=== PATIENT | male | born 1980 | race American Indian/Alaskan Native ===

== ENCOUNTER 2018-08-16 19:30 | Inpatient (IN) | payer SELFPAY ==
[2018-08-16] MEDS ORDERED: ATIVAN IM PRN (20:56)
[2018-08-16] MEDS ORDERED: HALDOL IM PRN (20:56)
--- NOTE | 2018-08-16 20:58 | Emergency Department Report ---
ED General Adult HPI - General Chief complaint: Altered Mental Status Stated complaint: POSS/SEIZURE Time Seen by Provider: 08/16/18 20:49 Source: patient, EMS (ems notes not available at time of chart dictation), RN notes reviewed, old records reviewed Mode of arrival: Stretcher Limitations: Altered Mental Status - History of Present Illness Initial comments: This is a 37-year-old gentleman who was brought to the hospital with Police Department and EMS secondary to altered mental status, aggressive behavior, and reported seizure-like activity. Patient is currently on a 1013 from local Police Department, and in custody. As per Police Department, the patient has articulated complaints of suicidality. Of note, the patient had a prolonged hospitalization in 2018. During a recent admission last year, the patient was intubated, and there was a very high suspicion for toxic alcohol ingestion. The patient received dialysis and fomipazole He was suspected of having a [place] tear, was also found to have renal insufficiency. In the emergency room today, the patient is awake, he will follow some commands, but he will not answer most open-ended questions are closed and he questions. He denies physical pain. He admits to having access to guns. He will not answer questions about homicidality or suicidality. He is smiling and laughing during his exam in the emergency room. No family available currently for collateral information or additional history. As per enclosed police documentation, "violent and aggressive causing property damage and fighting with police and EMS staff." Enclosed police documentation indicates that the patient made threats to harm himself, appeared upset, was combative, and attempted to injure someone else. -: unknown Quality: other Consistency: other Improves with: other Worsens with: other Associated Symptoms: confusion - Related Data Previous Rx's Medication Instructions Recorded Last Taken Type Omeprazole Magnesium [Prilosec Otc] 20 mg PO DAILY #30 tablet. 06/02/18 Unknown Rx Allergies Allergy/AdvReac Type Severity Reaction Status Date / Time Unable to Assess Allergy Verified 05/13/18 08:37 ED Review of Systems ROS: Stated complaint: POSS/SEIZURE Other details as noted in HPI Comment: Unobtainable due to pts medical conditions ED Past Medical Hx - Past Medical History Previous Medical History?: Yes Hx Congestive Heart Failure: No Hx Diabetes: No Hx Psychiatric Treatment: Yes (bipolar, schizophrenia) Hx Asthma: No Hx COPD: No Additional medical history: Pt states he has asthma and was in a coma in 2019 but cannot recall date. - Surgical History Past Surgical History?: No - Social History Smoking Status: Unknown if ever smoked - Medications Home Medications: Home Medications Medication Instructions Recorded Confirmed Last Taken Type Omeprazole Magnesium [Prilosec Otc] 20 mg PO DAILY #30 tablet. 06/02/18 08/17/18 Unknown Rx ED Physical Exam - General Limitations: Other (patient is psychotic and appears to be disorganized) General appearance: alert, in no apparent distress - Head Head exam: Present: atraumatic, normocephalic - Eye Eye exam: Present: normal appearance, PERRL, EOMI, other (visual acuity intact to finger counting, color perception, reading at a close distance). Absent: nystagmus - ENT ENT exam: Present: normal exam, normal orophraynx, mucous membranes moist, normal external ear exam - Neck Neck exam: Present: normal inspection, full ROM. Absent: tenderness, meningismus - Respiratory Respiratory exam: Present: normal lung sounds bilaterally. Absent: respiratory distress - Cardiovascular Cardiovascular Exam: Present: normal rhythm, tachycardia, normal heart sounds. Absent: systolic murmur, diastolic murmur, rubs, gallop - GI/Abdominal GI/Abdominal exam: Present: soft. Absent: distended, tenderness, guarding, rebound, rigid, pulsatile mass - Rectal Rectal exam: Present: deferred - Extremities Exam Extremities exam: Present: normal inspection, full ROM, other (2+ pulses noted in the bilateral upper, lower extremities. Compartments soft. No long bony tenderness. The pelvis is stable.). Absent: pedal edema, joint swelling, calf tenderness - Back Exam Back exam: Present: normal inspection, full ROM. Absent: tenderness, CVA tenderness (R), paraspinal tenderness, vertebral tenderness - Neurological Exam Neurological exam: Present: alert, other (Extraocular movements intact. Tongue midline. No facial droop. Facial sensation intact to light touch in the V1, V2, V3 distribution bilaterally. 5 and 5 strength in 4 extremities.. Sensation is intact to light touch in 4 extremities.) - Psychiatric Psychiatric exam: Present: suicidal ideation - Skin Skin exam: Present: warm, dry, intact, normal color. Absent: rash ED Course Vital Signs 08/16/18 08/16/18 08/16/18 20:26 20:30 21:00 Temperature 98.9 F Pulse Rate 116 H 115 H 104 H Respiratory 22 25 H 21 Rate Blood Pressure 110/58 107/59 117/64 O2 Sat by Pulse 96 96 Oximetry 08/16/18 08/16/18 08/16/18 21:30 22:00 22:30 Temperature Pulse Rate 109 H 104 H 113 H Respiratory 14 24 25 H Rate Blood Pressure 122/72 125/59 142/92 O2 Sat by Pulse 95 99 Oximetry 08/16/18 08/16/18 08/16/18 23:22 23:30 23:42 Temperature Pulse Rate 98 H 90 91 H Respiratory 18 14 Rate Blood Pressure 121/58 121/58 144/84 O2 Sat by Pulse 99 99 Oximetry 08/17/18 08/17/18 00:00 00:30 Temperature Pulse Rate 93 H 89 Respiratory 17 Rate Blood Pressure 146/93 146/93 O2 Sat by Pulse 93 98 Oximetry - Reevaluation(s) Reevaluation #1: 08/16/18 21:18 Differential diagnosis, including not limited to: Intracranial injury, cervical spine injury, overdose, suicidality, seizure, pseudoseizure, electrolyte derangement Assessment and plan: 37-year-old gentleman with complex past medical history, now with reported suicidality, questionable seizure-like activity, and who appears to be disorganized and psychotic. The patient requires initiation of ER hold, and 1013. The patient represents a danger to himself and possibly other people. Appropriate screening laboratory studies will be obtained. We will place the patient on seizure precautions. We will obtain screening laboratory studies, EKG, x-ray of the chest, CT scan of the brain, cervical spine. We will reassess after his initial that appointment have resulted. Reevaluation #2: 08/16/18 23:54 X-ray the chest is negative for acute disease. CT scan of the brain, cervical spine negative for acute disease. Patient is found to have multiple episodes of repeat hypoglycemia. He was given D50, dextrose 5, and started on a D10 drip. Lactic acidosis has improved. He is resting comfortably, and is currently in no acute distress. Given history of seizure, persistent hypoglycemia, the patient cannot be medically cleared for psychiatric placement at this time. He will require medical authorization for glycemic control. The hospital physician, Dr. Cooley has accepted the patient to the medical service for further evaluation for reported convulsion, and persistent refractory hypoglycemia. Reevaluation #3: 08/16/18 23:55 Vital sign abnormalities, leukocytosis and lactic acidosis are reviewed and appreciated. The history and physical, I do not suspect systemic bacterial illness, but rather overdose, or adrenergic involvement secondary to psychosis or drugs. iv fluids for hypercalcemia 08/17/18 05:57 ED Medical Decision Making - Lab Data Result diagrams: 08/16/18 20:54 08/16/18 20:54 Vital Signs 08/16/18 20:26 Temperature 98.9 F Pulse Rate 116 H Respiratory 22 Rate Blood Pressure 110/58 O2 Sat by Pulse 96 Oximetry Lab Results 08/16/18 08/16/18 Range/Units 20:54 20:58 WBC 14.1 H (4.5-11.0) K/mm3 RBC 4.53 (3.65-5.03) M/mm3 Hgb 13.0 (11.8-15.2) gm/dl Hct 39.0 (35.5-45.6) % MCV 86 (84-94) fl MCH 29 (28-32) pg MCHC 33 (32-34) % RDW 14.4 (13.2-15.2) % Plt Count 344 (140-440) K/mm3 Lymph % (Auto) 6.1 L (13.4-35.0) % [place] % (Auto) 6.8 (0.0-7.3) % Eos % (Auto) 0.1 (0.0-4.3) % Baso % (Auto) 0.4 (0.0-1.8) % Lymph # 0.9 L (1.2-5.4) K/mm3 [place] # 1.0 H (0.0-0.8) K/mm3 Eos # 0.0 (0.0-0.4) K/mm3 Baso # 0.1 (0.0-0.1) K/mm3 Seg Neutrophils % 86.6 H (40.0-70.0) % Seg Neutrophils # 12.3 H (1.8-7.7) K/mm3 PT 13.9 (12.2-14.9) Sec. INR 1.01 (0.87-1.13) APTT 26.4 (24.2-36.6) Sec. Lab Results 08/16/18 08/16/18 08/16/18 Range/Units 20:54 20:54 20:54 WBC (4.5-11.0) K/mm3 RBC (3.65-5.03) M/mm3 Hgb (11.8-15.2) gm/dl Hct (35.5-45.6) % MCV (84-94) fl MCH (28-32) pg MCHC (32-34) % RDW (13.2-15.2) % Plt Count (140-440) K/mm3 Lymph % (Auto) (13.4-35.0) % [place] % (Auto) (0.0-7.3) % Eos % (Auto) (0.0-4.3) % Baso % (Auto) (0.0-1.8) % Lymph # (1.2-5.4) K/mm3 [place] # (0.0-0.8) K/mm3 Eos # (0.0-0.4) K/mm3 Baso # (0.0-0.1) K/mm3 Seg Neutrophils % (40.0-70.0) % Seg Neutrophils # (1.8-7.7) K/mm3 PT (12.2-14.9) Sec. INR (0.87-1.13) APTT (24.2-36.6) Sec. Sodium 139 (137-145) mmol/L Potassium 4.1 (3.6-5.0) mmol/L Chloride 105.4 (98-107) mmol/L Carbon Dioxide 21 L (22-30) mmol/L Anion Gap 17 mmol/L BUN 13 (9-20) mg/dL Creatinine 1.6 H (0.8-1.5) mg/dL Estimated GFR 60 ml/min BUN/Creatinine Ratio 8 % Glucose 62 L (75-100) mg/dL Lactic Acid (0.7-2.0) mmol/L Calcium 11.9 H (8.4-10.2) mg/dL Magnesium (1.7-2.3) mg/dL Total Bilirubin (0.1-1.2) mg/dL Direct Bilirubin (0-0.2) mg/dL Indirect Bilirubin mg/dL AST (5-40) units/L ALT (7-56) units/L Alkaline Phosphatase (35-129) units/L Total Creatine Kinase (55-170) units/L Total Protein (6.3-8.2) g/dL Albumin (3.9-5) g/dL Albumin/Globulin Ratio % TSH (0.270-4.200) mlU/mL Salicylates < 0.3 L (2.8-20.0) mg/dL Acetaminophen < 5.0 L (10.0-30.0) ug/mL Plasma/Serum Alcohol (0-0.07) % 08/16/18 08/16/18 08/16/18 Range/Units 20:54 20:54 20:54 WBC 14.1 H (4.5-11.0) K/mm3 RBC 4.53 (3.65-5.03) M/mm3 Hgb 13.0 (11.8-15.2) gm/dl Hct 39.0 (35.5-45.6) % MCV 86 (84-94) fl MCH 29 (28-32) pg MCHC 33 (32-34) % RDW 14.4 (13.2-15.2) % Plt Count 344 (140-440) K/mm3 Lymph % (Auto) 6.1 L (13.4-35.0) % [place] % (Auto) 6.8 (0.0-7.3) % Eos % (Auto) 0.1 (0.0-4.3) % Baso % (Auto) 0.4 (0.0-1.8) % Lymph # 0.9 L (1.2-5.4) K/mm3 [place] # 1.0 H (0.0-0.8) K/mm3 Eos # 0.0 (0.0-0.4) K/mm3 Baso # 0.1 (0.0-0.1) K/mm3 Seg Neutrophils % 86.6 H (40.0-70.0) % Seg Neutrophils # 12.3 H (1.8-7.7) K/mm3 PT (12.2-14.9) Sec. INR (0.87-1.13) APTT (24.2-36.6) Sec. Sodium (137-145) mmol/L Potassium (3.6-5.0) mmol/L Chloride (98-107) mmol/L Carbon Dioxide (22-30) mmol/L Anion Gap mmol/L BUN (9-20) mg/dL Creatinine (0.8-1.5) mg/dL Estimated GFR ml/min BUN/Creatinine Ratio % Glucose (75-100) mg/dL Lactic Acid (0.7-2.0) mmol/L Calcium (8.4-10.2) mg/dL Magnesium (1.7-2.3) mg/dL Total Bilirubin (0.1-1.2) mg/dL Direct Bilirubin (0-0.2) mg/dL Indirect Bilirubin mg/dL AST (5-40) units/L ALT (7-56) units/L Alkaline Phosphatase (35-129) units/L Total Creatine Kinase (55-170) units/L Total Protein (6.3-8.2) g/dL Albumin (3.9-5) g/dL Albumin/Globulin Ratio % TSH 0.166 L (0.270-4.200) mlU/mL Salicylates (2.8-20.0) mg/dL Acetaminophen (10.0-30.0) ug/mL Plasma/Serum Alcohol < 0.01 (0-0.07) % 08/16/18 08/16/18 08/16/18 Range/Units 20:58 20:58 20:58 WBC (4.5-11.0) K/mm3 RBC (3.65-5.03) M/mm3 Hgb (11.8-15.2) gm/dl Hct (35.5-45.6) % MCV (84-94) fl MCH (28-32) pg MCHC (32-34) % RDW (13.2-15.2) % Plt Count (140-440) K/mm3 Lymph % (Auto) (13.4-35.0) % [place] % (Auto) (0.0-7.3) % Eos % (Auto) (0.0-4.3) % Baso % (Auto) (0.0-1.8) % Lymph # (1.2-5.4) K/mm3 [place] # (0.0-0.8) K/mm3 Eos # (0.0-0.4) K/mm3 Baso # (0.0-0.1) K/mm3 Seg Neutrophils % (40.0-70.0) % Seg Neutrophils # (1.8-7.7) K/mm3 PT 13.9 (12.2-14.9) Sec. INR 1.01 (0.87-1.13) APTT 26.4 (24.2-36.6) Sec. Sodium (137-145) mmol/L Potassium (3.6-5.0) mmol/L Chloride (98-107) mmol/L Carbon Dioxide (22-30) mmol/L Anion Gap mmol/L BUN (9-20) mg/dL Creatinine (0.8-1.5) mg/dL Estimated GFR ml/min BUN/Creatinine Ratio % Glucose (75-100) mg/dL Lactic Acid 2.80 H* (0.7-2.0) mmol/L Calcium (8.4-10.2) mg/dL Magnesium 2.30 (1.7-2.3) mg/dL Total Bilirubin 0.50 (0.1-1.2) mg/dL Direct Bilirubin < 0.2 (0-0.2) mg/dL Indirect Bilirubin 0.3 mg/dL AST 17 (5-40) units/L ALT 7 (7-56) units/L Alkaline Phosphatase 71 (35-129) units/L Total Creatine Kinase 507 H (55-170) units/L Total Protein 6.9 (6.3-8.2) g/dL Albumin 4.5 (3.9-5) g/dL Albumin/Globulin Ratio 1.9 % TSH (0.270-4.200) mlU/mL Salicylates (2.8-20.0) mg/dL Acetaminophen (10.0-30.0) ug/mL Plasma/Serum Alcohol (0-0.07) % - EKG Data -: EKG Interpreted by Me EKG shows normal: sinus rhythm Rate: tachycardia - EKG Data 08/16/18 21:19 Sinus tachycardia, 112 bpm, normal axis, normal intervals, borderline high left ventricular voltage, borderline left atrial enlargement, not consistent with ST elevation myocardial infarction, appears unchanged from prior EKG from 2017. - Radiology Data Radiology results: pending, report reviewed, image reviewed interpreted by me: xr chest negative for acute disease Critical care attestation.: If time is entered above; I have spent that time in minutes in the direct care of this critically ill patient, excluding procedure time. ED Disposition Clinical Impression: Hypoglycemia, History of convulsions, Psychosis Disposition: DC OP ADMIT IP TO THIS HOSP Is pt being admited?: Yes Does the pt Need Aspirin: No Condition: Fair
[2018-08-16 21:12] LABS: Basophils # (Auto) 0.1 K/mm3 (0.0-0.1); Basophils % (Auto) 0.4 % (0.0-1.8); Eosinophils % (Auto) 0.1 % (0.0-4.3); Lymphocytes # (Auto) 0.9 K/mm3 (1.2-5.4); Lymphocytes % (Auto) 6.1 % (13.4-35.0); Mean Corpuscular HGB Conc 33 % (32-34); Mean Corpuscular Volume 86 fl (84-94); Monocytes % (Auto) 6.8 % (0.0-7.3); Platelet Count 344 K/mm3 (140-440); Red Blood Count 4.53 M/mm3 (3.65-5.03); Red Cell Distribution Width 14.4 % (13.2-15.2)
[2018-08-16 21:15] LABS: INR 1.01 (0.87-1.13)
[2018-08-16 21:16] LABS: Partial Thromboplastin Time 26.4 Sec. (24.2-36.6)
[2018-08-16 21:21] LABS: Calcium 11.9 mg/dL (8.4-10.2)
[2018-08-16 21:23] LABS: Alanine Aminotransferase 7 units/L (7-56); Albumin 4.5 g/dL (3.9-5)
[2018-08-16 21:29] LABS: Bilirubin,Direct < 0.2 mg/dL (0-0.2)
[2018-08-16] MEDS ORDERED: NACL 0.9% 1000 ML 2,000 ML IV ONE (21:37)
[2018-08-16] MEDS ORDERED: D50W (25GM) Syringe IV ONE (21:37)
[2018-08-16] MEDS ORDERED: D5/0.45NS 1,000 ML IV SCH (22:00)
[2018-08-16 23:24] LABS: Amphetamine Screen,Urine PRESUMPTIVE NEGATIVE; Cocaine Screen,Urine PRESUMPTIVE NEGATIVE; Methadone Screen,Urine PRESUMPTIVE NEGATIVE; Opiate Screen,Urine PRESUMPTIVE NEGATIVE
[2018-08-16 23:27] LABS: Bacteria,Urine 1+ /HPF (Negative); Bilirubin,Urine NEG (Negative); Blood,Urine NEG (Negative); Color,Urine Yellow (Yellow); Mucus,Urine FEW /HPF; Urobilinogen,Urine < 2.0 mg/dL (<2.0)
--- NOTE | 2018-08-16 23:27 | XRay Report ---
PROCEDURE: XR CHEST 1V AP TECHNIQUE: Chest radiograph single view. HISTORY: damir guzman COMPARISONS: 05/18/2018 . FINDINGS: Heart: Normal. Mediastinum/Vessels: Normal. Lungs/Pleural space: Normal. Bony thorax: No acute osseous abnormality. Life support devices: None. IMPRESSION: No acute cardiopulmonary abnormality. This document is electronically signed by Maurice Perez MD., August 16 2018 11:24:50 PM ET
--- NOTE | 2018-08-16 23:32 | Cat Scan Report ---
PROCEDURE: CT head without contrast. TECHNIQUE: Computerized tomography of the head was performed without contrast material. CT DOSE LENGTH PRODUCT: 920.48 mGycm HISTORY: Altered mental status. COMPARISONS: None. FINDINGS: The ventricles are normal in size. The valera matter and white matter appear normal. There are no mass lesions. There is no intracranial hemorrhage. The calvarium appears intact. The mastoid air cells and visualized paranasal sinuses are well aerated. IMPRESSION: Normal study. This document is electronically signed by Lorenzo Escalante MD., August 16 2018 11:29:58 PM ET
[2018-08-16 23:36] LABS: Benzodiazepines Screen,Urine PRESUMPTIVE POSITIVE; Cannabinoid Screen,Urine PRESUMPTIVE POSITIVE
[2018-08-16] MEDS: D50W (25GM) Syringe IV PRN ×2 (23:41→23:46)
--- NOTE | 2018-08-16 23:42 | Cat Scan Report ---
PROCEDURE: CT cervical spine without contrast. TECHNIQUE: Computerized tomography of the cervical spine was performed from the skull base to T1 wit hout contrast material. CT DOSE LENGTH PRODUCT: 565.70 mGycm HISTORY: Altered mental status. COMPARISONS: None. FINDINGS: The cervical vertebrae have normal height and alignment. There are no fractures. There is no subluxat ion. There is mild disc space narrowing at C5-6. There are small vertebral body osteophytes at this l evel. There is no definite disc protrusion, although this is much better evaluated by MRI scanning. T he spinal canal is widely patent. The facet joints appear satisfactory. The neural foramina are widel y patent. The prevertebral soft tissues have normal thickness. IMPRESSION: Mild degenerative disc disease at C5-6. This document is electronically signed by Lorenzo Escalante MD., August 16 2018 11:40:13 PM ET
[2018-08-17] MEDS: D10W 1,000 ML IV SCH ×3 (00:20→20:21)
[2018-08-17] MEDS ORDERED: SODIUM CHLORIDE FLUSH SYRINGE 10 ML IV PRN (00:36)
[2018-08-17] MEDS ORDERED: ZOFRAN IV PRN (00:36)
--- NOTE | 2018-08-17 00:42 | History and Physical Report ---
<ADELFO MCCALLUM - Last Filed: 08/17/18 01:28> History of Present Illness Date of examination: 08/16/18 Date of admission: 08/16/18 23:54 Chief complaint: Altered mental status History of present illness: Patient is a 37-year-old male with PMHx of mental illness, hypertension, depression, alcohol intoxication, prior renal insufficiency who was brought to the ER by the Police Department and EMS due to change in mental status, aggress yahaira behavior, and seizure-like activity. Patient was place on [address] by the Police Department for suicidal ideation. Review the patient records showed that patient has an history of mental illness, he was hospitalized and intubated a year ago for alcohol intoxication. By the time of admission patient was awake and alert somewhat anxious, he was able to answer to questions, he states that he was hearing voices telling him to take care of his children, he denied suicidal or homicidal ideation, He admits to marijuana use, he reports abstinence from alcohol since last year. Patient states that he does not remember what happened prior to coming to the hospital, he recalls he was very mad, when informed about staying at the hospital for hypoglycemia, he gets very anxious and refused, he states that he has things to do and he has his 3 children to take care of. Patient's CT scan of the brain was normal, his WBC was 14.1, his creatinine 1.6, and a calcium level of 11.9 his blood glucose was 57 with [id number] infusing at 125/hr. Past History Past Medical History: hypertension, other (mental illness, alcohol intoxication) Past Surgical History: No surgical history Social history: no significant social history, smoking (Marijuna) Family history: no significant family history Medications and Allergies Allergies Allergy/AdvReac Type Severity Reaction Status Date / Time Unable to Assess Allergy Verified 05/13/18 08:37 Home Medications Medication Instructions Recorded Confirmed Last Taken Type Omeprazole Magnesium [Prilosec Otc] 20 mg PO DAILY #30 tablet. 06/02/18 08/17/18 Unknown Rx Active Meds: Active Medications Dextrose (D50w (25gm) Syringe) 50 ml IV PRN PRN PRN Reason: Hypoglycemia Last Admin: 08/16/18 23:46 Dose: 50 ml Documented by: Haloperidol Lactate (Haldol) 5 mg IM Q6HR PRN PRN Reason: Agitation Dextrose/Sodium Chloride (D5/0.45ns) 1,000 mls @ 0 mls/hr IV DIRECT MELBA Last Admin: 08/16/18 23:46 Dose: 999 mls/hr Documented by: Dextrose (D10w) 1,000 mls @ 125 mls/hr IV DIRECT MELBA Last Admin: 08/17/18 00:20 Dose: 125 mls/hr Documented by: Lorazepam (Ativan) 2 mg IM Q4HR PRN PRN Reason: Agitation Review of Systems Psychiatric: anxiety, depression Exam - Constitutional Vitals: Temp Pulse Resp BP Pulse Ox 98.9 F 90 18 121/58 99 08/16/18 20:26 08/16/18 23:30 08/16/18 23:30 08/16/18 23:30 08/16/18 23:30 General appearance: Present: no acute distress - EENT Eyes: Present: EOM intact ENT: hearing intact, dentition normal - Neck Neck: Present: supple - Respiratory Respiratory effort: normal Respiratory: bilateral: CTA - Cardiovascular Rhythm: regular Heart Sounds: Present: S1 & S2 - Extremities Extremities: no ischemia Peripheral Pulses: within normal limits - Abdominal General gastrointestinal: Present: deferred Male genitourinary: Present: deferred - Rectal Rectal Exam: deferred - Integumentary Integumentary: Present: clear, warm, dry - Musculoskeletal Musculoskeletal: strength equal bilaterally - Psychiatric Psychiatric: appropriate mood/affect - Neurologic Neurologic: moves all extremities Results - Labs CBC & Chem 7: 08/16/18 20:54 08/16/18 20:54 Labs: Laboratory Last Values WBC 14.1 K/mm3 (4.5-11.0) H 08/16/18 20:54 RBC 4.53 M/mm3 (3.65-5.03) 08/16/18 20:54 Hgb 13.0 gm/dl (11.8-15.2) 08/16/18 20:54 Hct 39.0 % (35.5-45.6) 08/16/18 20:54 MCV 86 fl (84-94) 08/16/18 20:54 MCH 29 pg (28-32) 08/16/18 20:54 MCHC 33 % (32-34) 08/16/18 20:54 RDW 14.4 % (13.2-15.2) 08/16/18 20:54 Plt Count 344 K/mm3 (140-440) 08/16/18 20:54 Lymph % (Auto) 6.1 % (13.4-35.0) L 08/16/18 20:54 [place] % (Auto) 6.8 % (0.0-7.3) 08/16/18 20:54 Eos % (Auto) 0.1 % (0.0-4.3) 08/16/18 20:54 Baso % (Auto) 0.4 % (0.0-1.8) 08/16/18 20:54 Lymph # 0.9 K/mm3 (1.2-5.4) L 08/16/18 20:54 [place] # 1.0 K/mm3 (0.0-0.8) H 08/16/18 20:54 Eos # 0.0 K/mm3 (0.0-0.4) 08/16/18 20:54 Baso # 0.1 K/mm3 (0.0-0.1) 08/16/18 20:54 Seg Neutrophils % 86.6 % (40.0-70.0) H 08/16/18 20:54 Seg Neutrophils # 12.3 K/mm3 (1.8-7.7) H 08/16/18 20:54 PT 13.9 Sec. (12.2-14.9) 08/16/18 20:58 INR 1.01 (0.87-1.13) 08/16/18 20:58 APTT 26.4 Sec. (24.2-36.6) 08/16/18 20:58 Sodium 139 mmol/L (137-145) 08/16/18 20:54 Potassium 4.1 mmol/L (3.6-5.0) 08/16/18 20:54 Chloride 105.4 mmol/L (98-107) 08/16/18 20:54 Carbon Dioxide 21 mmol/L (22-30) L 08/16/18 20:54 Anion Gap 17 mmol/L 08/16/18 20:54 BUN 13 mg/dL (9-20) 08/16/18 20:54 Creatinine 1.6 mg/dL (0.8-1.5) H 08/16/18 20:54 Estimated GFR 60 ml/min 08/16/18 20:54 BUN/Creatinine Ratio 8 % 08/16/18 20:54 Glucose 62 mg/dL (75-100) L 08/16/18 20:54 POC Glucose 119 (70-105) H 08/17/18 00:27 Lactic Acid 1.40 mmol/L (0.7-2.0) 08/16/18 21:49 Calcium 11.9 mg/dL (8.4-10.2) H 08/16/18 20:54 Magnesium 2.30 mg/dL (1.7-2.3) 08/16/18 20:58 Total Bilirubin 0.50 mg/dL (0.1-1.2) 08/16/18 20:58 Direct Bilirubin < 0.2 mg/dL (0-0.2) 08/16/18 20:58 Indirect Bilirubin 0.3 mg/dL 08/16/18 20:58 AST 17 units/L (5-40) 08/16/18 20:58 ALT 7 units/L (7-56) 08/16/18 20:58 Alkaline Phosphatase 71 units/L (35-129) 08/16/18 20:58 Total Creatine Kinase 507 units/L (55-170) H 08/16/18 20:58 Total Protein 6.9 g/dL (6.3-8.2) 08/16/18 20:58 Albumin 4.5 g/dL (3.9-5) 08/16/18 20:58 Albumin/Globulin Ratio 1.9 % 08/16/18 20:58 TSH 0.166 mlU/mL (0.270-4.200) L 08/16/18 20:54 Free T4 1.18 ng/dL (0.76-1.46) 08/16/18 20:54 Urine Color Yellow (Yellow) 08/16/18 23:01 Urine Turbidity Slightly-cloudy (Clear) 08/16/18 23:01 Urine pH 5.0 (5.0-7.0) 08/16/18 23:01 Ur Specific [place] 1.014 (1.003-1.030) 08/16/18 23:01 Urine Protein 100 mg/dl mg/dL (Negative) 08/16/18 23:01 Urine Glucose (UA) 50 mg/dL (Negative) 08/16/18 23:01 Urine Ketones Tr mg/dL (Negative) 08/16/18 23:01 Urine Blood Neg (Negative) 08/16/18 23:01 Urine Nitrite Neg (Negative) 08/16/18 23:01 Urine Bilirubin Neg (Negative) 08/16/18 23:01 Urine Urobilinogen < 2.0 mg/dL (<2.0) 08/16/18 23:01 Ur Leukocyte Esterase Neg (Negative) 08/16/18 23:01 Urine WBC (Auto) 2.0 /HPF (0.0-6.0) 08/16/18 23:01 Urine RBC (Auto) 1.0 /HPF (0.0-6.0) 08/16/18 23:01 Urine Bacteria (Auto) 1+ /HPF (Negative) 08/16/18 23:01 Urine Mucus Few /HPF 08/16/18 23:01 Salicylates < 0.3 mg/dL (2.8-20.0) L 08/16/18 20:54 Urine Opiates Screen Presumptive negative 08/16/18 23:01 Urine Methadone Screen Presumptive negative 08/16/18 23:01 Acetaminophen < 5.0 ug/mL (10.0-30.0) L 08/16/18 20:54 Ur Barbiturates Screen Presumptive negative 08/16/18 23:01 Ur Phencyclidine Scrn Presumptive negative 08/16/18 23:01 Ur Amphetamines Screen Presumptive negative 08/16/18 23:01 U Benzodiazepines Scrn Presumptive positive 08/16/18 23:01 Urine Cocaine Screen Presumptive negative 08/16/18 23:01 U Marijuana (THC) Screen Presumptive positive 08/16/18 23:01 Drugs of Abuse Note Disclamer 08/16/18 23:01 Plasma/Serum Alcohol < 0.01 % (0-0.07) 08/16/18 20:54 Assessment and Plan Assessment and plan: 1. New onset Hypoglycemia 2. Acute psychosis behavior (likely due to hypoglycemia or other etiology) 4. Leukocytosis (likely due to demargination) 6. Hyperglycemia (etiology unclear) 7. Renal insufficiency 8. History of EtOH abuse/intoxication 9. History of depression/anxiety 10. Acute psychosis/suicidal ideation 1013 11. Hypertension Plan: Patient is admitted for hypoglycemia Started on D10 at 125 per hour Accu-Chek every 2 hours 2 hours Then every 4 hours thereafter Cardiac diet Monitor blood pressure q4hrs Hydralazine 10 mg IV Q4hrs PRN for SBP>160 1 - 1 Observation for suicidal ideation Safety precaution Resume home meds when they're available Advance Directives: Yes VTE prophylaxis?: Mechanical Plan of care discussed with patient/family: Yes <RUBYLEODAN E - Last Filed: 08/17/18 05:34> History of Present Illness Date of admission: 08/16/18 23:54 Medications and Allergies Active Meds: Active Medications Acetaminophen (Tylenol) 650 mg PO Q4H PRN PRN Reason: Pain MILD(1-3)/Fever >100.5/OSBORN Dextrose (D50w (25gm) Syringe) 50 ml IV PRN PRN PRN Reason: Hypoglycemia Last Admin: 08/16/18 23:46 Dose: 50 ml Documented by: Famotidine (Pepcid) 20 mg IV QAM MELBA Haloperidol Lactate (Haldol) 5 mg IM Q6HR PRN PRN Reason: Agitation Dextrose (D10w) 1,000 mls @ 125 mls/hr IV DIRECT MELBA Last Admin: 08/17/18 00:20 Dose: 125 mls/hr Documented by: Lorazepam (Ativan) 2 mg IM Q4HR PRN PRN Reason: Agitation Ondansetron HCl (Zofran) 4 mg IV Q8H PRN PRN Reason: Nausea And Vomiting Sodium Chloride (Sodium Chloride Flush Syringe 10 Ml) 10 ml IV BID MELBA Sodium Chloride (Sodium Chloride Flush Syringe 10 Ml) 10 ml IV PRN PRN PRN Reason: LINE FLUSH Exam - Constitutional Vitals: Temp Pulse Resp BP Pulse Ox 98.1 F 86 18 136/64 98 08/17/18 04:00 08/17/18 04:00 08/17/18 04:00 08/17/18 04:00 08/17/18 04:00 Results - Labs CBC & Chem 7: 08/16/18 20:54 08/16/18 20:54 Labs: Laboratory Last Values WBC 14.1 K/mm3 (4.5-11.0) H 08/16/18 20:54 RBC 4.53 M/mm3 (3.65-5.03) 08/16/18 20:54 Hgb 13.0 gm/dl (11.8-15.2) 08/16/18 20:54 Hct 39.0 % (35.5-45.6) 08/16/18 20:54 MCV 86 fl (84-94) 08/16/18 20:54 MCH 29 pg (28-32) 08/16/18 20:54 MCHC 33 % (32-34) 08/16/18 20:54 RDW 14.4 % (13.2-15.2) 08/16/18 20:54 Plt Count 344 K/mm3 (140-440) 08/16/18 20:54 Lymph % (Auto) 6.1 % (13.4-35.0) L 08/16/18 20:54 [place] % (Auto) 6.8 % (0.0-7.3) 08/16/18 20:54 Eos % (Auto) 0.1 % (0.0-4.3) 08/16/18 20:54 Baso % (Auto) 0.4 % (0.0-1.8) 08/16/18 20:54 Lymph # 0.9 K/mm3 (1.2-5.4) L 08/16/18 20:54 [place] # 1.0 K/mm3 (0.0-0.8) H 08/16/18 20:54 Eos # 0.0 K/mm3 (0.0-0.4) 08/16/18 20:54 Baso # 0.1 K/mm3 (0.0-0.1) 08/16/18 20:54 Seg Neutrophils % 86.6 % (40.0-70.0) H 08/16/18 20:54 Seg Neutrophils # 12.3 K/mm3 (1.8-7.7) H 08/16/18 20:54 PT 13.9 Sec. (12.2-14.9) 08/16/18 20:58 INR 1.01 (0.87-1.13) 08/16/18 20:58 APTT 26.4 Sec. (24.2-36.6) 08/16/18 20:58 Sodium 139 mmol/L (137-145) 08/16/18 20:54 Potassium 4.1 mmol/L (3.6-5.0) 08/16/18 20:54 Chloride 105.4 mmol/L (98-107) 08/16/18 20:54 Carbon Dioxide 21 mmol/L (22-30) L 08/16/18 20:54 Anion Gap 17 mmol/L 08/16/18 20:54 BUN 13 mg/dL (9-20) 08/16/18 20:54 Creatinine 1.6 mg/dL (0.8-1.5) H 08/16/18 20:54 Estimated GFR 60 ml/min 08/16/18 20:54 BUN/Creatinine Ratio 8 % 08/16/18 20:54 Glucose 62 mg/dL (75-100) L 08/16/18 20:54 POC Glucose 95 (70-105) 08/17/18 03:28 Hemoglobin A1c 4.7 % (4-6) 08/17/18 01:06 Lactic Acid 1.40 mmol/L (0.7-2.0) 08/16/18 21:49 Calcium 11.9 mg/dL (8.4-10.2) H 08/16/18 20:54 Magnesium 2.30 mg/dL (1.7-2.3) 08/16/18 20:58 Total Bilirubin 0.50 mg/dL (0.1-1.2) 08/16/18 20:58 Direct Bilirubin < 0.2 mg/dL (0-0.2) 08/16/18 20:58 Indirect Bilirubin 0.3 mg/dL 08/16/18 20:58 AST 17 units/L (5-40) 08/16/18 20:58 ALT 7 units/L (7-56) 08/16/18 20:58 Alkaline Phosphatase 71 units/L (35-129) 08/16/18 20:58 Total Creatine Kinase 507 units/L (55-170) H 08/16/18 20:58 Total Protein 6.9 g/dL (6.3-8.2) 08/16/18 20:58 Albumin 4.5 g/dL (3.9-5) 08/16/18 20:58 Albumin/Globulin Ratio 1.9 % 08/16/18 20:58 Triglycerides 35 mg/dL (2-149) 08/17/18 01:06 Cholesterol 129 mg/dL (50-199) 08/17/18 01:06 LDL Cholesterol Direct 86 mg/dL (50-130) 08/17/18 01:06 HDL Cholesterol 44 mg/dL (40-59) 08/17/18 01:06 Cholesterol/HDL Ratio 2.93 % 08/17/18 01:06 TSH 0.166 mlU/mL (0.270-4.200) L 08/16/18 20:54 Free T4 1.18 ng/dL (0.76-1.46) 08/16/18 20:54 Urine Color Yellow (Yellow) 08/16/18 23:01 Urine Turbidity Slightly-cloudy (Clear) 08/16/18 23: Urine pH 5.0 (5.0-7.0) 08/16/18 23: Ur Specific [place] 1.014 (1.003-1.030) 08/16/18 23: Urine Protein 100 mg/dl mg/dL (Negative) 08/16/18 23: Urine Glucose (UA) 50 mg/dL (Negative) 08/16/18 23: Urine Ketones Tr mg/dL (Negative) 08/16/18 23:01 Urine Blood Neg (Negative) 08/16/18 23:01 Urine Nitrite Neg (Negative) 08/16/18 23:01 Urine Bilirubin Neg (Negative) 08/16/18 23: Urine Urobilinogen < 2.0 mg/dL (<2.0) 08/16/18 23:01 Ur Leukocyte Esterase Neg (Negative) 08/16/18 23:01 Urine WBC (Auto) 2.0 /HPF (0.0-6.0) 08/16/18 23: Urine RBC (Auto) 1.0 /HPF (0.0-6.0) 08/16/18 23:01 Urine Bacteria (Auto) 1+ /HPF (Negative) 08/16/18 23: Urine Mucus Few /HPF 08/16/18 23: Salicylates < 0.3 mg/dL (2.8-20.0) L 08/16/18 20:54 Urine Opiates Screen Presumptive negative 08/16/18 23:01 Urine Methadone Screen Presumptive negative 08/16/18 23: Acetaminophen < 5.0 ug/mL (10.0-30.0) L 08/16/18 20:54 Ur Barbiturates Screen Presumptive negative 08/16/18 23:01 Ur Phencyclidine Scrn Presumptive negative 08/16/18 23:01 Ur Amphetamines Screen Presumptive negative 08/16/18 23:01 U Benzodiazepines Scrn Presumptive positive 08/16/18 23:01 Urine Cocaine Screen Presumptive negative 08/16/18 23:01 U Marijuana (THC) Screen Presumptive positive 08/16/18 23:01 Drugs of Abuse Note Disclamer 08/16/18 23:01 Plasma/Serum Alcohol < 0.01 % (0-0.07) 08/16/18 20:54 Assessment and Plan Assessment and plan: Patient seen and examined with nurse practitioner. This is 37-year-old man with a history of bipolar, schizophrenia was brought to the emergency room for evaluation of suicide ideation. He admits to hearing voices, telling him to take care of his children. However he admits to the emergency room physician that the voices were telling him to kill himself. Unclear etiology of hypoglycemia, however this is responding to IV fluids. Continue 1013, consult psych
[2018-08-17 01:52] LABS: Chol/HDL Ratio 2.93 %
--- NOTE | 2018-08-17 12:00 | Progress Note ---
Assessment and Plan Assessment and plan: --Hypoglycemia; present on admission Blood sugars are reasonable levels, closely monitor --Acute psychosis; patient has history of schizophrenia Patient is on 1013 status, psychiatric evaluation, supportive care --Suicidal thoughts or ideation; 1013 status/psych --Acute kidney injury; secondary to ATN Gentle hydration and closely monitor renal function and avoid nephrotoxins --Possible UTI ; empiric antibiotics and follow cultures --History of substance abuse; alcohol, tobacco and recreational use Advised to quit --History of hypertension; moderate control continue current antihypertensives and when necessary medications --Abnormal thyroid function tests; repeat thyroid panel and manage accordingly --DVT prophylaxis; Lovenox Closely monitor the patient and adjust the management as needed Continue 1013 status, follow psych evaluation Possible transfer to inpatient psych facility once medically stable Plan of care reviewed with the patient and his nurse History Interval history: Patient seen and examined medical records reviewed Patient is comfortable in no new complaints food safety field specialist at the bedside Alert awake oriented 3 vital signs reviewed Hospitalist Physical - Constitutional Vitals: Temp Pulse Resp BP Pulse Ox 98.1 F 86 18 136/64 98 08/17/18 04:00 08/17/18 04:00 08/17/18 04:00 08/17/18 04:00 08/17/18 04:00 General appearance: Present: no acute distress, well-nourished - EENT Eyes: Present: PERRL, EOM intact - Neck Neck: Present: supple, normal ROM - Respiratory Respiratory effort: normal Respiratory: bilateral: diminished, negative: rales, rhonchi, wheezing - Cardiovascular Rhythm: regular Heart Sounds: Present: S1 & S2 - Extremities Extremities: no ischemia, No edema - Abdominal General gastrointestinal: soft, non-tender, non-distended, normal bowel sounds - Integumentary Integumentary: Present: clear, warm - Psychiatric Psychiatric: appropriate mood/affect, cooperative - Neurologic Neurologic: moves all extremities Results - Labs CBC & Chem 7: 08/16/18 20:54 08/16/18 20:54 Labs: Laboratory Last Values WBC 14.1 K/mm3 (4.5-11.0) H 08/16/18 20:54 RBC 4.53 M/mm3 (3.65-5.03) 08/16/18 20:54 Hgb 13.0 gm/dl (11.8-15.2) 08/16/18 20:54 Hct 39.0 % (35.5-45.6) 08/16/18 20:54 MCV 86 fl (84-94) 08/16/18 20:54 MCH 29 pg (28-32) 08/16/18 20:54 MCHC 33 % (32-34) 08/16/18 20:54 RDW 14.4 % (13.2-15.2) 08/16/18 20:54 Plt Count 344 K/mm3 (140-440) 08/16/18 20:54 Lymph % (Auto) 6.1 % (13.4-35.0) L 08/16/18 20:54 [place] % (Auto) 6.8 % (0.0-7.3) 08/16/18 20:54 Eos % (Auto) 0.1 % (0.0-4.3) 08/16/18 20:54 Baso % (Auto) 0.4 % (0.0-1.8) 08/16/18 20:54 Lymph # 0.9 K/mm3 (1.2-5.4) L 08/16/18 20:54 [place] # 1.0 K/mm3 (0.0-0.8) H 08/16/18 20:54 Eos # 0.0 K/mm3 (0.0-0.4) 08/16/18 20:54 Baso # 0.1 K/mm3 (0.0-0.1) 08/16/18 20:54 Seg Neutrophils % 86.6 % (40.0-70.0) H 08/16/18 20:54 Seg Neutrophils # 12.3 K/mm3 (1.8-7.7) H 08/16/18 20:54 PT 13.9 Sec. (12.2-14.9) 08/16/18 20:58 INR 1.01 (0.87-1.13) 08/16/18 20:58 APTT 26.4 Sec. (24.2-36.6) 08/16/18 20:58 Sodium 139 mmol/L (137-145) 08/16/18 20:54 Potassium 4.1 mmol/L (3.6-5.0) 08/16/18 20:54 Chloride 105.4 mmol/L (98-107) 08/16/18 20:54 Carbon Dioxide 21 mmol/L (22-30) L 08/16/18 20:54 Anion Gap 17 mmol/L 08/16/18 20:54 BUN 13 mg/dL (9-20) 08/16/18 20:54 Creatinine 1.6 mg/dL (0.8-1.5) H 08/16/18 20:54 Estimated GFR 60 ml/min 08/16/18 20:54 BUN/Creatinine Ratio 8 % 08/16/18 20:54 Glucose 62 mg/dL (75-100) L 08/16/18 20:54 POC Glucose 72 (70-105) 08/17/18 08:19 Hemoglobin A1c 4.7 % (4-6) 08/17/18 01:06 Lactic Acid 1.40 mmol/L (0.7-2.0) 08/16/18 21:49 Calcium 11.9 mg/dL (8.4-10.2) H 08/16/18 20:54 Magnesium 2.30 mg/dL (1.7-2.3) 08/16/18 20:58 Total Bilirubin 0.50 mg/dL (0.1-1.2) 08/16/18 20:58 Direct Bilirubin < 0.2 mg/dL (0-0.2) 08/16/18 20:58 Indirect Bilirubin 0.3 mg/dL 08/16/18 20:58 AST 17 units/L (5-40) 08/16/18 20:58 ALT 7 units/L (7-56) 08/16/18 20:58 Alkaline Phosphatase 71 units/L (35-129) 08/16/18 20:58 Total Creatine Kinase 507 units/L (55-170) H 08/16/18 20:58 Total Protein 6.9 g/dL (6.3-8.2) 08/16/18 20:58 Albumin 4.5 g/dL (3.9-5) 08/16/18 20:58 Albumin/Globulin Ratio 1.9 % 08/16/18 20:58 Triglycerides 35 mg/dL (2-149) 08/17/18 01:06 Cholesterol 129 mg/dL (50-199) 08/17/18 01:06 LDL Cholesterol Direct 86 mg/dL (50-130) 08/17/18 01:06 HDL Cholesterol 44 mg/dL (40-59) 08/17/18 01:06 Cholesterol/HDL Ratio 2.93 % 08/17/18 01:06 TSH 0.166 mlU/mL (0.270-4.200) L 08/16/18 20:54 Free T4 1.18 ng/dL (0.76-1.46) 08/16/18 20:54 Urine Color Yellow (Yellow) 08/16/18 23: Urine Turbidity Slightly-cloudy (Clear) 08/16/18 23: Urine pH 5.0 (5.0-7.0) 08/16/18 23: Ur Specific [place] 1.014 (1.003-1.030) 08/16/18 23: Urine Protein 100 mg/dl mg/dL (Negative) 08/16/18 23: Urine Glucose (UA) 50 mg/dL (Negative) 08/16/18 23: Urine Ketones Tr mg/dL (Negative) 08/16/18 23:01 Urine Blood Neg (Negative) 08/16/18 23:01 Urine Nitrite Neg (Negative) 08/16/18 23:01 Urine Bilirubin Neg (Negative) 08/16/18 23: Urine Urobilinogen < 2.0 mg/dL (<2.0) 08/16/18 23:01 Ur Leukocyte Esterase Neg (Negative) 08/16/18 23:01 Urine WBC (Auto) 2.0 /HPF (0.0-6.0) 08/16/18 23:01 Urine RBC (Auto) 1.0 /HPF (0.0-6.0) 08/16/18 23:01 Urine Bacteria (Auto) 1+ /HPF (Negative) 08/16/18 23: Urine Mucus Few /HPF 08/16/18 23:01 Salicylates < 0.3 mg/dL (2.8-20.0) L 08/16/18 20:54 Urine Opiates Screen Presumptive negative 08/16/18 23:01 Urine Methadone Screen Presumptive negative 08/16/18 23: Acetaminophen < 5.0 ug/mL (10.0-30.0) L 08/16/18 20:54 Ur Barbiturates Screen Presumptive negative 08/16/18 23:01 Ur Phencyclidine Scrn Presumptive negative 08/16/18 23:01 Ur Amphetamines Screen Presumptive negative 08/16/18 23:01 U Benzodiazepines Scrn Presumptive positive 08/16/18 23:01 Urine Cocaine Screen Presumptive negative 08/16/18 23:01 U Marijuana (THC) Screen Presumptive positive 08/16/18 23:01 Drugs of Abuse Note Disclamer 08/16/18 23:01 Plasma/Serum Alcohol < 0.01 % (0-0.07) 08/16/18 20:54
[2018-08-17] MEDS: TYLENOL PO PRN ×2 (12:04→21:15)
[2018-08-17] MEDS: PEPCID IV SCH (12:13)
[2018-08-17] MEDS: SODIUM CHLORIDE FLUSH SYRINGE 10 ML IV SCH ×2 (12:14→21:16)
[2018-08-17] MEDS ORDERED: XYLOCAINE 1% MPF 5 mL INFILTRATI ONE (15:30)
[2018-08-18 06:15] LABS: Basophils % (Auto) 0.6 % (0.0-1.8); Eosinophils # (Auto) 0.3 K/mm3 (0.0-0.4); Eosinophils % (Auto) 5.2 % (0.0-4.3); Hematocrit 42.3 % (35.5-45.6); Hemoglobin 13.8 gm/dl (11.8-15.2); Lymphocytes # (Auto) 2.5 K/mm3 (1.2-5.4); Lymphocytes % (Auto) 39.8 % (13.4-35.0); Mean Corpuscular HGB Conc 33 % (32-34); Mean Corpuscular Volume 87 fl (84-94); Monocytes # (Auto) 0.6 K/mm3 (0.0-0.8); Monocytes % (Auto) 9.7 % (0.0-7.3); Platelet Count 321 K/mm3 (140-440); Red Blood Count 4.85 M/mm3 (3.65-5.03); Red Cell Distribution Width 14.5 % (13.2-15.2)
[2018-08-18 07:06] LABS: BUN/Creatinine Ratio 8; Blood Urea Nitrogen 7 mg/dL (9-20); Calcium 11.6 mg/dL (8.4-10.2); Hemolysis Index 7
[2018-08-18] MEDS ORDERED: ROCEPHIN IM SCH (10:00)
[2018-08-18] MEDS: APRESOLINE IV PRN ×3 (10:24→18:57)
[2018-08-18] MEDS: SODIUM CHLORIDE FLUSH SYRINGE 10 ML IV SCH ×2 (10:25→22:03)
--- NOTE | 2018-08-18 10:25 | Progress Note ---
Assessment and Plan Assessment and plan: 37-year-old male patient with history of schizophrenia and depression alcohol intoxication was brought by police department EMS with altered level of consciousness and aggressive behavior, Patient was noted to be in acute psychosis with suicidal ideation and thoughts, placed on 1013 status, symptomatically being managed, awaiting psych evaluation --Acute psychosis; patient has history of schizophrenia Patient is on 1013 status, psychiatric evaluation, supportive care --Suicidal thoughts or ideation; 1013 status/psych --Hypoglycemia; present on admission Blood sugars are reasonable levels, closely monitor --Acute kidney injury; secondary to ATN; resolved --Hypercalcemia; patient has history of recurrent hypercalcemia Vigorous IV hydration, monitor calcium levels --Possible UTI ; emperic antibiotics and follow cultures --Leukocytosis present on admission; probably secondary to UTI Resolved ,FOLLOW cultures --History of substance abuse; alcohol, tobacco and recreational use Advised to quit --History of hypertension; moderate control continue current antihypertensives and when necessary medications --Abnormal thyroid function tests; repeat thyroid panel and manage accordingly --DVT prophylaxis; Lovenox Closely monitor the patient and adjust the management as needed Continue 1013 status, follow psych evaluation Possible transfer to inpatient psych facility once medically stable Plan of care reviewed with the patient and his nurse History Interval history: Patient seen and examined medical records reviewed Patient feels slightly better no new complaints Alert awake oriented 3 not in acute distress Vital signs reviewed hand mica plate layer at the bedside Hospitalist Physical - Constitutional Vitals: Temp Pulse Resp BP Pulse Ox 98.2 F 89 20 159/98 100 08/18/18 10:08/18/18 10:08/18/18 10:08/18/18 10:08/18/18 10:09 General appearance: Present: no acute distress, well-nourished - EENT Eyes: Present: PERRL, EOM intact - Neck Neck: Present: supple, normal ROM - Respiratory Respiratory effort: normal Respiratory: bilateral: diminished, negative: rales, rhonchi, wheezing - Cardiovascular Rhythm: regular Heart Sounds: Present: S1 & S2 - Extremities Extremities: no ischemia, No edema Peripheral Pulses: within normal limits - Abdominal General gastrointestinal: soft, non-tender, non-distended, normal bowel sounds - Integumentary Integumentary: Present: clear, warm - Psychiatric Psychiatric: appropriate mood/affect, cooperative - Neurologic Neurologic: CNII-XII intact, moves all extremities Results - Labs CBC & Chem 7: 08/18/18 04:22 08/18/18 04:22 Labs: Laboratory Last Values WBC 6.4 K/mm3 (4.5-11.0) 08/18/18 04:22 RBC 4.85 M/mm3 (3.65-5.03) 08/18/18 04:22 Hgb 13.8 gm/dl (11.8-15.2) 08/18/18 04:22 Hct 42.3 % (35.5-45.6) 08/18/18 04:22 MCV 87 fl (84-94) 08/18/18 04:22 MCH 29 pg (28-32) 08/18/18 04:22 MCHC 33 % (32-34) 08/18/18 04:22 RDW 14.5 % (13.2-15.2) 08/18/18 04:22 Plt Count 321 K/mm3 (140-440) 08/18/18 04:22 Lymph % (Auto) 39.8 % (13.4-35.0) H 08/18/18 04:22 [place] % (Auto) 9.7 % (0.0-7.3) H 08/18/18 04:22 Eos % (Auto) 5.2 % (0.0-4.3) H 08/18/18 04:22 Baso % (Auto) 0.6 % (0.0-1.8) 08/18/18 04:22 Lymph # 2.5 K/mm3 (1.2-5.4) 08/18/18 04:22 [place] # 0.6 K/mm3 (0.0-0.8) 08/18/18 04:22 Eos # 0.3 K/mm3 (0.0-0.4) 08/18/18 04:22 Baso # 0.0 K/mm3 (0.0-0.1) 08/18/18 04:22 Seg Neutrophils % 44.7 % (40.0-70.0) 08/18/18 04:22 Seg Neutrophils # 2.9 K/mm3 (1.8-7.7) 08/18/18 04:22 PT 13.9 Sec. (12.2-14.9) 08/16/18 20:58 INR 1.01 (0.87-1.13) 08/16/18 20:58 APTT 26.4 Sec. (24.2-36.6) 08/16/18 20:58 Sodium 141 mmol/L (137-145) 08/18/18 04:22 Potassium 4.1 mmol/L (3.6-5.0) 08/18/18 04:22 Chloride 103.4 mmol/L (98-107) 08/18/18 04:22 Carbon Dioxide 27 mmol/L (22-30) 08/18/18 04:22 Anion Gap 15 mmol/L 08/18/18 04:22 BUN 7 mg/dL (9-20) L 08/18/18 04:22 Creatinine 0.9 mg/dL (0.8-1.5) 08/18/18 04:22 Estimated GFR > 60 ml/min 08/18/18 04:22 BUN/Creatinine Ratio 8 % 08/18/18 04:22 Glucose 87 mg/dL (75-100) 08/18/18 04:22 POC Glucose 100 (70-105) 08/17/18 16:12 Hemoglobin A1c 4.7 % (4-6) 08/17/18 01:06 Lactic Acid 1.40 mmol/L (0.7-2.0) 08/16/18 21:49 Calcium 11.6 mg/dL (8.4-10.2) H 08/18/18 04:22 Magnesium 2.30 mg/dL (1.7-2.3) 08/16/18 20:58 Total Bilirubin 0.50 mg/dL (0.1-1.2) 08/16/18 20:58 Direct Bilirubin < 0.2 mg/dL (0-0.2) 08/16/18 20:58 Indirect Bilirubin 0.3 mg/dL 08/16/18 20:58 AST 17 units/L (5-40) 08/16/18 20:58 ALT 7 units/L (7-56) 08/16/18 20:58 Alkaline Phosphatase 71 units/L (35-129) 08/16/18 20:58 Total Creatine Kinase 507 units/L (55-170) H 08/16/18 20:58 Total Protein 6.9 g/dL (6.3-8.2) 08/16/18 20:58 Albumin 4.5 g/dL (3.9-5) 08/16/18 20:58 Albumin/Globulin Ratio 1.9 % 08/16/18 20:58 Triglycerides 35 mg/dL (2-149) 08/17/18 01:06 Cholesterol 129 mg/dL (50-199) 08/17/18 01:06 LDL Cholesterol Direct 86 mg/dL (50-130) 08/17/18 01:06 HDL Cholesterol 44 mg/dL (40-59) 08/17/18 01:06 Cholesterol/HDL Ratio 2.93 % 08/17/18 01:06 TSH 0.166 mlU/mL (0.270-4.200) L 08/16/18 20:54 Free T4 1.18 ng/dL (0.76-1.46) 08/16/18 20:54 Urine Color Yellow (Yellow) 08/16/18 23:01 Urine Turbidity Slightly-cloudy (Clear) 08/16/18 23:01 Urine pH 5.0 (5.0-7.0) 08/16/18 23:01 Ur Specific [place] 1.014 (1.003-1.030) 08/16/18 23:01 Urine Protein 100 mg/dl mg/dL (Negative) 08/16/18 23:01 Urine Glucose (UA) 50 mg/dL (Negative) 08/16/18 23:01 Urine Ketones Tr mg/dL (Negative) 08/16/18 23:01 Urine Blood Neg (Negative) 08/16/18 23:01 Urine Nitrite Neg (Negative) 08/16/18 23:01 Urine Bilirubin Neg (Negative) 08/16/18 23:01 Urine Urobilinogen < 2.0 mg/dL (<2.0) 08/16/18 23:01 Ur Leukocyte Esterase Neg (Negative) 08/16/18 23:01 Urine WBC (Auto) 2.0 /HPF (0.0-6.0) 08/16/18 23:01 Urine RBC (Auto) 1.0 /HPF (0.0-6.0) 08/16/18 23:01 Urine Bacteria (Auto) 1+ /HPF (Negative) 08/16/18 23:01 Urine Mucus Few /HPF 08/16/18 23:01 Salicylates < 0.3 mg/dL (2.8-20.0) L 08/16/18 20:54 Urine Opiates Screen Presumptive negative 08/16/18 23:01 Urine Methadone Screen Presumptive negative 08/16/18 23:01 Acetaminophen < 5.0 ug/mL (10.0-30.0) L 08/16/18 20:54 Ur Barbiturates Screen Presumptive negative 08/16/18 23:01 Ur Phencyclidine Scrn Presumptive negative 08/16/18 23:01 Ur Amphetamines Screen Presumptive negative 08/16/18 23:01 U Benzodiazepines Scrn Presumptive positive 08/16/18 23:01 Urine Cocaine Screen Presumptive negative 08/16/18 23:01 U Marijuana (THC) Screen Presumptive positive 08/16/18 23:01 Drugs of Abuse Note Disclamer 08/16/18 23:01 Plasma/Serum Alcohol < 0.01 % (0-0.07) 08/16/18 20:54
[2018-08-18] MEDS: PEPCID IV SCH (10:28)
[2018-08-18] MEDS: LOVENOX SUB-Q SCH (10:28)
[2018-08-18] MEDS: APRESOLINE PO SCH ×3 (10:37→22:02)
[2018-08-18] MEDS: D10W 1,000 ML IV SCH ×2 (10:43→20:24)
--- NOTE | 2018-08-18 12:21 | Consultation ---
History of Present Illness - Reason for Consult Consult date: 08/18/18 Reason for consult: Mental Health Evaluation Requesting physician: GALEN MICHELLE - Chief Complaint Chief complaint: "Hello" - History of Present Psychiatric Illness 37 y.o. AA male who presented to the ER for AMS. This patient is known to me. Today the patient is disorganized during the assessment. His answers to most questions were not logical. He was able to state that he take Geodon that was prescribed by [facility]. He can not elaborate why he was brought to the hospital other than saying he was hearing voices at his "girl's house." He continue to state that he is hearing voices when asked. Throughout the interview, the patient smiles inappropriately, possibly responding to some type of stimuli. At this time, the patient is a poor historian. Medications and Allergies Allergies Allergy/AdvReac Type Severity Reaction Status Date / Time Unable to Assess Allergy Verified 05/13/18 08:37 Home Medications Medication Instructions Recorded Confirmed Last Taken Type Omeprazole Magnesium [Prilosec Otc] 20 mg PO DAILY #30 tablet. 06/02/18 08/17/18 Unknown Rx Active Meds: Active Medications Acetaminophen (Tylenol) 650 mg PO Q4H PRN PRN Reason: Pain MILD(1-3)/Fever >100.5/OSBORN Last Admin: 08/17/18 21:15 Dose: 650 mg Documented by: Dextrose (D50w (25gm) Syringe) 50 ml IV PRN PRN PRN Reason: Hypoglycemia Last Admin: 08/16/18 23:46 Dose: 50 ml Documented by: Enoxaparin Sodium (Lovenox) 30 mg SUB-Q QDAY [facility] Last Admin: 08/18/18 10:28 Dose: 30 mg Documented by: Famotidine (Pepcid) 20 mg IV QAM [facility] Last Admin: 08/18/18 10:28 Dose: Not Given Documented by: Hydralazine HCl (Apresoline) 10 mg PO Q8HR [facility] Last Admin: 08/18/18 10:37 Dose: 10 mg Documented by: Hydralazine HCl (Apresoline) 10 mg IV Q4HR PRN PRN Reason: Hypertension Dextrose (D10w) 1,000 mls @ 125 mls/hr IV DIRECT [facility] Last Admin: 08/18/18 10:43 Dose: 125 mls/hr Documented by: Ceftriaxone Sodium (Rocephin/Ns 1 Gm/50 Ml) 1 gm in 50 mls @ 100 mls/hr IV Q24HR MELBA; Protocol Ondansetron HCl (Zofran) 4 mg IV Q8H PRN PRN Reason: Nausea And Vomiting Sodium Chloride (Sodium Chloride Flush Syringe 10 Ml) 10 ml IV BID MELBA Last Admin: 08/18/18 10:25 Dose: 10 ml Documented by: Sodium Chloride (Sodium Chloride Flush Syringe 10 Ml) 10 ml IV PRN PRN PRN Reason: LINE FLUSH Past psychiatric history - Past Medical History Past Medical History: other (Asthma) Past Surgical History: No surgical history - past Psychiatric treatment and history psychiatric treatment history: Ingested Antifreeze in the past (suicide attempt). Unable to obtain a fam psy hx. - Social History Social history: lives with family Mental Status Exam - Vital signs Last Vital Signs Temp 98.2 F 08/18/18 10:09 Pulse 92 H 08/18/18 10:37 Resp 20 08/18/18 10:09 BP 159/98 08/18/18 10:37 Pulse Ox 100 08/18/18 10:09 - Exam Narrative exam: MSE: Appearance: in a hospital attire Behavior: regular eye contact Speech: regular rate and tone Mood: euphoric Affect: congruent to mood Thought Process: disorganized Thought Content: denies SI/HI's and VH's Motor Activity: sitting up in the bed Cognition: A/O x3 Insight: poor Judgment: poor Results Result Diagrams: 08/18/18 04:22 08/18/18 04:22 Abnormal lab results 08/17/18 08/18/18 08/18/18 Range/Units 12:42 04:22 04:22 Lymph % (Auto) 39.8 H (13.4-35.0) % [place] % (Auto) 9.7 H (0.0-7.3) % Eos % (Auto) 5.2 H (0.0-4.3) % BUN 7 L (9-20) mg/dL POC Glucose 110 H (70-105) Calcium 11.6 H (8.4-10.2) mg/dL All other labs normal. Assessment and Plan Assessment and plan: Impression: Unspecified Psychosis. Cannabis Use DO. Hx of Depression. Today the patient is disorganized during the assessment. The patient is experiencing perceptual disturbances. DDx: Bipolar DO with psychosis, Substance Induced Psychosis Recommendation/Plan: Continue 1013 and start Geodon 20 mg PO BID for psychosis. Attempted to discuss possible metabolic side effects of Geodon with the patient. Give Geodon with food. Dispo: The patient will be referred to inpatient psy services once medically clear. Will staff with Dr Love Mcghee.
[2018-08-18] MEDS: ROCEPHIN/NS 1 GM/50 ML 1 GM/50 ML BAG IV SCH (14:01)
[2018-08-18] MEDS: GEODON PO SCH ×2 (14:01→22:03)
[2018-08-18] MEDS: TYLENOL PO PRN (22:04)
[2018-08-19] MEDS: APRESOLINE PO SCH ×3 (06:23→21:11)
[2018-08-19 06:30] LABS: Basophils # (Auto) 0.1 K/mm3 (0.0-0.1); Basophils % (Auto) 1.1 % (0.0-1.8); Eosinophils # (Auto) 0.3 K/mm3 (0.0-0.4); Eosinophils % (Auto) 4.9 % (0.0-4.3); Hemoglobin 14.8 gm/dl (11.8-15.2); Lymphocytes # (Auto) 2.5 K/mm3 (1.2-5.4); Lymphocytes % (Auto) 42.1 % (13.4-35.0); Mean Corpuscular HGB Conc 33 % (32-34); Mean Corpuscular Volume 86 fl (84-94); Monocytes # (Auto) 0.6 K/mm3 (0.0-0.8); Platelet Count 329 K/mm3 (140-440); Red Blood Count 5.22 M/mm3 (3.65-5.03); Red Cell Distribution Width 14.5 % (13.2-15.2)
[2018-08-19 06:54] LABS: BUN/Creatinine Ratio 8; Blood Urea Nitrogen 6 mg/dL (9-20); Calcium 11.6 mg/dL (8.4-10.2); Hemolysis Index 7
[2018-08-19 07:07] LABS: Free T4 (Free Thyroxine) 1.5 ng/dL (0.76-1.46)
--- NOTE | 2018-08-19 09:38 | Progress Note ---
Subjective - Reason for Consult Consult date: 08/19/18 Reason for consult: Psychiatry Follow-up - Chief Complaint Chief complaint: "The voices are going away" 37 y.o. AA male who presented to the ER for AMS. This patient is known to me. Today the patient is cooperative during the assessment. he stated that voices are going away." He was able to explain more in detail what happened to him prior to coming to the ER. Throughout the interview, the was fidgety while sitting still. He denies SI/HI's and AVH's. Mental Status Exam - Vital signs Last Vital Signs Temp 97.9 F 08/19/18 06:25 Pulse 94 H 08/19/18 06:25 Resp 100 H 08/19/18 06:25 BP 131/103 08/19/18 06:25 Pulse Ox 97 08/18/18 20:26 - Exam Narrative exam: MSE: Appearance: cooperative Behavior: regular eye contact Speech: regular rate and tone Mood: euphoric Affect: congruent to mood Thought Process: circumstantial Thought Content: denies SI/HI's and VH's Motor Activity: involuntary movements Cognition: A/O x3 Insight: variable Judgment: variable Assessment and Plan Impression: Unspecified Psychosis. Cannabis Use DO. Hx of Depression. Today the patient is disorganized during the assessment. The patient is experiencing perceptual disturbances. Observed involuntary movements (EPS). DDx: Bipolar DO with psychosis, Substance Induced Psychosis Recommendation/Plan: Continue 1013, Geodon 20 mg PO BID for psychosis, and start Cogentim 0.5 mg PO BID for EPS. Discussed possible metabolic side effects of Geodon with the patient. Give Geodon with food. Dispo: The patient will be referred to inpatient psy services once medically clear. Staffed with Dr Marcus Mcghee.
[2018-08-19] MEDS: GEODON PO SCH ×2 (11:11→21:11)
[2018-08-19] MEDS: COGENTIN PO SCH ×2 (11:11→21:11)
[2018-08-19] MEDS: ROCEPHIN/NS 1 GM/50 ML 1 GM/50 ML BAG IV SCH (11:12)
[2018-08-19] MEDS: PEPCID IV SCH (11:13)
[2018-08-19] MEDS: LOVENOX SUB-Q SCH (11:18)
[2018-08-19] MEDS: SODIUM CHLORIDE FLUSH SYRINGE 10 ML IV SCH ×2 (11:19→21:11)
[2018-08-19] MEDS ORDERED: MIRALAX 3350 PO PRN (12:50)
--- NOTE | 2018-08-19 13:00 | Progress Note ---
Assessment and Plan Assessment and plan: Patient is a 37-year-old man with history of schizophrenia, MDD and Alcohol intoxication was brought in by police department EMS with altered level of consciousness and aggressive behavior. Patient was noted to be in acute psychosis with suicidal ideation and placed on 1013 status. -Acute psychosis; patient has history of schizophrenia, Patient is on 1013 status, psychiatric evaluation, supportive care -Suicidal thoughts or ideation; 1013 status/psych -Hypoglycemia; present on admission, Blood sugars are reasonable levels, closely monitor -Acute kidney injury; secondary to ATN; resolved -Hypercalcemia; patient has history of recurrent hypercalcemia, Vigorous IV hydration, monitor calcium levels -Sepsis UTI, poa treat with Antibiotics and follow cultures -History of substance abuse; alcohol, tobacco and recreational use, Advised to quit -History of hypertension; moderate control continue current antihypertensives, and when necessary medications -Abnormal thyroid function tests; repeat thyroid panel and manage accordingly -DVT prophylaxis; Lovenox Closely monitor the patient and adjust the management as needed Continue 1013 status, follow psych evaluation Possible transfer to inpatient psych facility once medically stable Plan of care reviewed with the patient and his nurse History Interval history: Patient was seen and examined. Follow-up on current diagnosis of SI, denies today. Overnight uneventful. Patient denies any chest pain, shortness breath, nausea/vomiting or severe headaches. Imaging, nursing note, chart, labs and old chart reviewed. Discussed with patient. Hospitalist Physical - Physical exam Narrative exam: Gen: WDWN, NAD, Awake, Alert, Orientated HEENT: NCAT, EOMI, PERRL, OP Clear Neck: supple, no adenopathy, no thyromegaly, no JVD CVS/Heart: RRR, normal S1S2, pulses present bilaterally Chest/Lungs: CTA B, Symmetrical chest expansion, good air entry bilaterally GI/Abdomen: soft, NTND, good bowel sounds, no guarding or rebound /Bladder: no suprapubic tenderness, no CVA or paraspinal tenderness Extermity/Skin: no c/c/e, no obvious rash MSK: FROM x 4 Neuro: CN 2-12 grossly intact, no new focal deficits Psych: calm - Constitutional Vitals: Temp Pulse Resp BP Pulse Ox 97.9 F 94 H 100 H 131/103 97 08/19/18 06:25 08/19/18 06:25 08/19/18 06:25 08/19/18 06:25 08/18/18 20:26 General appearance: Present: no acute distress, well-nourished Results - Labs CBC & Chem 7: 08/19/18 05:19 08/19/18 05:19 Labs: Laboratory Last Values WBC 6.0 K/mm3 (4.5-11.0) 08/19/18 05:19 RBC 5.22 M/mm3 (3.65-5.03) H 08/19/18 05:19 Hgb 14.8 gm/dl (11.8-15.2) 08/19/18 05:19 Hct 45.0 % (35.5-45.6) 08/19/18 05:19 MCV 86 fl (84-94) 08/19/18 05:19 MCH 28 pg (28-32) 08/19/18 05:19 MCHC 33 % (32-34) 08/19/18 05:19 RDW 14.5 % (13.2-15.2) 08/19/18 05:19 Plt Count 329 K/mm3 (140-440) 08/19/18 05:19 Lymph % (Auto) 42.1 % (13.4-35.0) H 08/19/18 05:19 [place] % (Auto) 10.0 % (0.0-7.3) H 08/19/18 05:19 Eos % (Auto) 4.9 % (0.0-4.3) H 08/19/18 05:19 Baso % (Auto) 1.1 % (0.0-1.8) 08/19/18 05:19 Lymph # 2.5 K/mm3 (1.2-5.4) 08/19/18 05:19 [place] # 0.6 K/mm3 (0.0-0.8) 08/19/18 05:19 Eos # 0.3 K/mm3 (0.0-0.4) 08/19/18 05:19 Baso # 0.1 K/mm3 (0.0-0.1) 08/19/18 05:19 Seg Neutrophils % 41.9 % (40.0-70.0) 08/19/18 05:19 Seg Neutrophils # 2.5 K/mm3 (1.8-7.7) 08/19/18 05:19 PT 13.9 Sec. (12.2-14.9) 08/16/18 20:58 INR 1.01 (0.87-1.13) 08/16/18 20:58 APTT 26.4 Sec. (24.2-36.6) 08/16/18 20:58 Sodium 140 mmol/L (137-145) 08/19/18 05:19 Potassium 3.6 mmol/L (3.6-5.0) 08/19/18 05:19 Chloride 105.1 mmol/L (98-107) 08/19/18 05:19 Carbon Dioxide 24 mmol/L (22-30) 08/19/18 05:19 Anion Gap 15 mmol/L 08/19/18 05:19 BUN 6 mg/dL (9-20) L 08/19/18 05:19 Creatinine 0.8 mg/dL (0.8-1.5) 08/19/18 05:19 Estimated GFR > 60 ml/min 08/19/18 05:19 BUN/Creatinine Ratio 8 % 08/19/18 05:19 Glucose 109 mg/dL (75-100) H 08/19/18 05:19 POC Glucose 100 (70-105) 08/17/18 16:12 Hemoglobin A1c 4.7 % (4-6) 08/17/18 01:06 Lactic Acid 1.40 mmol/L (0.7-2.0) 08/16/18 21:49 Calcium 11.6 mg/dL (8.4-10.2) H 08/19/18 05:19 Magnesium 2.30 mg/dL (1.7-2.3) 08/16/18 20:58 Total Bilirubin 0.50 mg/dL (0.1-1.2) 08/16/18 20:58 Direct Bilirubin < 0.2 mg/dL (0-0.2) 08/16/18 20:58 Indirect Bilirubin 0.3 mg/dL 08/16/18 20:58 AST 17 units/L (5-40) 08/16/18 20:58 ALT 7 units/L (7-56) 08/16/18 20:58 Alkaline Phosphatase 71 units/L (35-129) 08/16/18 20:58 Total Creatine Kinase 507 units/L (55-170) H 08/16/18 20:58 Total Protein 6.9 g/dL (6.3-8.2) 08/16/18 20:58 Albumin 4.5 g/dL (3.9-5) 08/16/18 20:58 Albumin/Globulin Ratio 1.9 % 08/16/18 20:58 Triglycerides 35 mg/dL (2-149) 08/17/18 01:06 Cholesterol 129 mg/dL (50-199) 08/17/18 01:06 LDL Cholesterol Direct 86 mg/dL (50-130) 08/17/18 01:06 HDL Cholesterol 44 mg/dL (40-59) 08/17/18 01:06 Cholesterol/HDL Ratio 2.93 % 08/17/18 01:06 TSH 0.691 mlU/mL (0.270-4.200) 08/19/18 05:19 Free T4 1.50 ng/dL (0.76-1.46) H 08/19/18 05:19 Urine Color Yellow (Yellow) 08/16/18 23:01 Urine Turbidity Slightly-cloudy (Clear) 08/16/18 23: Urine pH 5.0 (5.0-7.0) 08/16/18 23: Ur Specific [place] 1.014 (1.003-1.030) 08/16/18 23:01 Urine Protein 100 mg/dl mg/dL (Negative) 08/16/18 23:01 Urine Glucose (UA) 50 mg/dL (Negative) 08/16/18 23:01 Urine Ketones Tr mg/dL (Negative) 08/16/18 23: Urine Blood Neg (Negative) 08/16/18 23:01 Urine Nitrite Neg (Negative) 08/16/18 23: Urine Bilirubin Neg (Negative) 08/16/18 23:01 Urine Urobilinogen < 2.0 mg/dL (<2.0) 08/16/18 23:01 Ur Leukocyte Esterase Neg (Negative) 08/16/18 23:01 Urine WBC (Auto) 2.0 /HPF (0.0-6.0) 08/16/18 23:01 Urine RBC (Auto) 1.0 /HPF (0.0-6.0) 08/16/18 23:01 Urine Bacteria (Auto) 1+ /HPF (Negative) 08/16/18 23:01 Urine Mucus Few /HPF 08/16/18 23:01 Salicylates < 0.3 mg/dL (2.8-20.0) L 08/16/18 20:54 Urine Opiates Screen Presumptive negative 08/16/18 23:01 Urine Methadone Screen Presumptive negative 08/16/18 23:01 Acetaminophen < 5.0 ug/mL (10.0-30.0) L 08/16/18 20:54 Ur Barbiturates Screen Presumptive negative 08/16/18 23:01 Ur Phencyclidine Scrn Presumptive negative 08/16/18 23:01 Ur Amphetamines Screen Presumptive negative 08/16/18 23:01 U Benzodiazepines Scrn Presumptive positive 08/16/18 23:01 Urine Cocaine Screen Presumptive negative 08/16/18 23:01 U Marijuana (THC) Screen Presumptive positive 08/16/18 23:01 Drugs of Abuse Note Disclamer 08/16/18 23:01 Plasma/Serum Alcohol < 0.01 % (0-0.07) 08/16/18 20:54
[2018-08-19] MEDS: APRESOLINE IV PRN (21:58)
[2018-08-20] MEDS ORDERED: HALDOL DECANOATE IM ONE (02:40)
[2018-08-20] MEDS: NACL 0.9% 1000 ML 1,000 ML IV SCH ×3 (03:18→18:13)
[2018-08-20] MEDS: APRESOLINE PO SCH ×3 (05:23→22:03)
[2018-08-20 05:53] LABS: BUN/Creatinine Ratio 10; Blood Urea Nitrogen 8 mg/dL (9-20); Hemolysis Index 45
[2018-08-20] MEDS: COGENTIN PO SCH ×2 (09:54→22:03)
[2018-08-20] MEDS: SODIUM CHLORIDE FLUSH SYRINGE 10 ML IV SCH ×2 (09:54→22:04)
[2018-08-20] MEDS: ROCEPHIN/NS 1 GM/50 ML 1 GM/50 ML BAG IV SCH (09:54)
[2018-08-20] MEDS: PEPCID IV SCH (09:54)
[2018-08-20] MEDS: GEODON PO SCH ×2 (09:54→22:03)
[2018-08-20] MEDS: LOVENOX SUB-Q SCH (09:55)
--- NOTE | 2018-08-20 10:05 | Progress Note ---
Assessment and Plan Assessment and plan: Patient is a 37-year-old man with history of schizophrenia, MDD and Alcohol intoxication was brought in by police department EMS with altered level of consciousness and aggressive behavior. Patient was noted to be in acute psychosis with suicidal ideation and placed on 1013 status. -Acute psychosis; patient has history of schizophrenia, Patient is on 1013 status, psychiatric evaluation, supportive care -Suicidal thoughts or ideation; 1013 status/psych -Hypoglycemia; present on admission, Blood sugars are reasonable levels, closely monitor -Acute kidney injury; secondary to ATN; resolved -Hypercalcemia; patient has history of recurrent hypercalcemia, Vigorous IV hydration, monitor calcium levels -Sepsis UTI, poa treat with Antibiotics and follow cultures -History of substance abuse; alcohol, tobacco and recreational use, Advised to quit -History of hypertension; moderate control continue current antihypertensives, and when necessary medications -Abnormal thyroid function tests; repeat thyroid panel and manage accordingly -EPS, poa: psych is following -DVT prophylaxis; Lovenox Closely monitor the patient and adjust the management as needed Continue 1013 status, follow psych evaluation Possible transfer to inpatient psych facility once medically stable Plan of care reviewed with the patient and his nurse Medical cleared to go to inpatient psych facility History Interval history: Patient was seen and examined. Follow-up on current diagnosis of SI, denies today. Overnight uneventful. Patient denies any chest pain, shortness breath, nausea/vomiting or severe headaches. Imaging, nursing note, chart, labs and old chart reviewed. Discussed with patient. Hospitalist Physical - Physical exam Narrative exam: Gen: WDWN, NAD, Awake, Alert, Orientated HEENT: NCAT, EOMI, PERRL, OP Clear Neck: supple, no adenopathy, no thyromegaly, no JVD CVS/Heart: RRR, normal S1S2, pulses present bilaterally Chest/Lungs: CTA B, Symmetrical chest expansion, good air entry bilaterally GI/Abdomen: soft, NTND, good bowel sounds, no guarding or rebound /Bladder: no suprapubic tenderness, no CVA or paraspinal tenderness Extermity/Skin: no c/c/e, no obvious rash MSK: FROM x 4 Neuro: CN 2-12 grossly intact, no new focal deficits Psych: calm - Constitutional Vitals: Temp Pulse Resp BP Pulse Ox 97.9 F 98 H 16 148/103 100 08/20/18 04:00 08/20/18 04:00 08/20/18 04:00 08/20/18 04:00 08/19/18 21:53 General appearance: Present: no acute distress, well-nourished Results - Labs CBC & Chem 7: 08/19/18 05:19 08/20/18 04:38 Labs: Laboratory Last Values WBC 6.0 K/mm3 (4.5-11.0) 08/19/18 05:19 RBC 5.22 M/mm3 (3.65-5.03) H 08/19/18 05:19 Hgb 14.8 gm/dl (11.8-15.2) 08/19/18 05:19 Hct 45.0 % (35.5-45.6) 08/19/18 05:19 MCV 86 fl (84-94) 08/19/18 05:19 MCH 28 pg (28-32) 08/19/18 05:19 MCHC 33 % (32-34) 08/19/18 05:19 RDW 14.5 % (13.2-15.2) 08/19/18 05:19 Plt Count 329 K/mm3 (140-440) 08/19/18 05:19 Lymph % (Auto) 42.1 % (13.4-35.0) H 08/19/18 05:19 [place] % (Auto) 10.0 % (0.0-7.3) H 08/19/18 05:19 Eos % (Auto) 4.9 % (0.0-4.3) H 08/19/18 05:19 Baso % (Auto) 1.1 % (0.0-1.8) 08/19/18 05:19 Lymph # 2.5 K/mm3 (1.2-5.4) 08/19/18 05:19 [place] # 0.6 K/mm3 (0.0-0.8) 08/19/18 05:19 Eos # 0.3 K/mm3 (0.0-0.4) 08/19/18 05:19 Baso # 0.1 K/mm3 (0.0-0.1) 08/19/18 05:19 Seg Neutrophils % 41.9 % (40.0-70.0) 08/19/18 05:19 Seg Neutrophils # 2.5 K/mm3 (1.8-7.7) 08/19/18 05:19 PT 13.9 Sec. (12.2-14.9) 08/16/18 20:58 INR 1.01 (0.87-1.13) 08/16/18 20:58 APTT 26.4 Sec. (24.2-36.6) 08/16/18 20:58 Sodium 137 mmol/L (137-145) 08/20/18 04:38 Potassium 4.2 mmol/L (3.6-5.0) 08/20/18 04:38 Chloride 106.2 mmol/L (98-107) 08/20/18 04:38 Carbon Dioxide 23 mmol/L (22-30) 08/20/18 04:38 Anion Gap 12 mmol/L 08/20/18 04:38 BUN 8 mg/dL (9-20) L 08/20/18 04:38 Creatinine 0.8 mg/dL (0.8-1.5) 08/20/18 04:38 Estimated GFR > 60 ml/min 08/20/18 04:38 BUN/Creatinine Ratio 10 % 08/20/18 04:38 Glucose 94 mg/dL (75-100) 08/20/18 04:38 POC Glucose 100 (70-105) 08/17/18 16:12 Hemoglobin A1c 4.7 % (4-6) 08/17/18 01:06 Lactic Acid 1.40 mmol/L (0.7-2.0) 08/16/18 21:49 Calcium 12.0 mg/dL (8.4-10.2) H 08/20/18 04:38 Magnesium 2.30 mg/dL (1.7-2.3) 08/16/18 20:58 Total Bilirubin 0.50 mg/dL (0.1-1.2) 08/16/18 20:58 Direct Bilirubin < 0.2 mg/dL (0-0.2) 08/16/18 20:58 Indirect Bilirubin 0.3 mg/dL 08/16/18 20:58 AST 17 units/L (5-40) 08/16/18 20:58 ALT 7 units/L (7-56) 08/16/18 20:58 Alkaline Phosphatase 71 units/L (35-129) 08/16/18 20:58 Total Creatine Kinase 507 units/L (55-170) H 08/16/18 20:58 Total Protein 6.9 g/dL (6.3-8.2) 08/16/18 20:58 Albumin 4.5 g/dL (3.9-5) 08/16/18 20:58 Albumin/Globulin Ratio 1.9 % 08/16/18 20:58 Triglycerides 35 mg/dL (2-149) 08/17/18 01:06 Cholesterol 129 mg/dL (50-199) 08/17/18 01:06 LDL Cholesterol Direct 86 mg/dL (50-130) 08/17/18 01:06 HDL Cholesterol 44 mg/dL (40-59) 08/17/18 01:06 Cholesterol/HDL Ratio 2.93 % 08/17/18 01:06 TSH 0.691 mlU/mL (0.270-4.200) 08/19/18 05:19 Free T4 1.50 ng/dL (0.76-1.46) H 08/19/18 05:19 Urine Color Yellow (Yellow) 08/16/18 23:01 Urine Turbidity Slightly-cloudy (Clear) 08/16/18 23:01 Urine pH 5.0 (5.0-7.0) 08/16/18 23: Ur Specific [place] 1.014 (1.003-1.030) 08/16/18 23:01 Urine Protein 100 mg/dl mg/dL (Negative) 08/16/18 23:01 Urine Glucose (UA) 50 mg/dL (Negative) 08/16/18 23:01 Urine Ketones Tr mg/dL (Negative) 08/16/18 23:01 Urine Blood Neg (Negative) 08/16/18 23:01 Urine Nitrite Neg (Negative) 08/16/18 23:01 Urine Bilirubin Neg (Negative) 08/16/18 23:01 Urine Urobilinogen < 2.0 mg/dL (<2.0) 08/16/18 23:01 Ur Leukocyte Esterase Neg (Negative) 08/16/18 23:01 Urine WBC (Auto) 2.0 /HPF (0.0-6.0) 08/16/18 23:01 Urine RBC (Auto) 1.0 /HPF (0.0-6.0) 08/16/18 23:01 Urine Bacteria (Auto) 1+ /HPF (Negative) 08/16/18 23:01 Urine Mucus Few /HPF 08/16/18 23:01 Salicylates < 0.3 mg/dL (2.8-20.0) L 08/16/18 20:54 Urine Opiates Screen Presumptive negative 08/16/18 23:01 Urine Methadone Screen Presumptive negative 08/16/18 23:01 Acetaminophen < 5.0 ug/mL (10.0-30.0) L 08/16/18 20:54 Ur Barbiturates Screen Presumptive negative 08/16/18 23:01 Ur Phencyclidine Scrn Presumptive negative 08/16/18 23:01 Ur Amphetamines Screen Presumptive negative 08/16/18 23:01 U Benzodiazepines Scrn Presumptive positive 08/16/18 23:01 Urine Cocaine Screen Presumptive negative 08/16/18 23:01 U Marijuana (THC) Screen Presumptive positive 08/16/18 23:01 Drugs of Abuse Note Disclamer 08/16/18 23:01 Plasma/Serum Alcohol < 0.01 % (0-0.07) 08/16/18 20:54
--- NOTE | 2018-08-20 13:40 | Progress Note ---
Subjective - Reason for Consult Consult date: 08/20/18 Reason for consult: Psychiatric Follow-Up - Chief Complaint Chief complaint: "I'm good" Patient is a 37 y.o. male who presented to the ER for AMS. This patient is known to me. Today the patient is cooperative but anxious during the assessment. He continues to endorse paranoid delusions and auditory hallucinations of his family members and friends. He reports " they are not telling me to harm myself." Throughout the interview, patient is fidgety while sitting still and appears internally preoccupied. He denies SI/HI's and VH's. He reports poor sleep and appetite. Patient is medication compliant. Denies side effects of medications. Mental Status Exam - Vital signs Last Vital Signs Temp 98.0 F 08/20/18 12:49 Pulse 100 H 08/20/18 12:49 Resp 19 08/20/18 12:49 BP 151/99 08/20/18 12:49 Pulse Ox 99 08/20/18 12:49 - Exam Narrative exam: Mental Status Exam Appearance: cooperative Behavior: regular eye contact Speech: regular rate and tone Mood: "I'm good"; euphoric Affect: congruent to mood Thought Process: circumstantial; somewhat disorganized at times Thought Content: denies SI/HI's and VH's; + AH's of family members and friends Motor Activity: involuntary movements; hyperactivity Cognition: A/O x3 Insight: variable Judgment: variable Assessment and Plan Impression: Unspecified Psychosis. Cannabis Use DO. Hx of Depression. Today the patient is cooperative but anxious during the assessment. He appears disorganized. The patient is experiencing perceptual disturbances. Observed involuntary movements (EPS)- will continue to monitor if symptoms persists may change/start new anti-psychotic. DDx: Bipolar DO with psychosis, Substance Induced Psychosis Recommendation/Plan: 1. Continue 1013. 2. Continue Geodon 20 mg PO BID for psychosis/mood. Discussed possible metabolic side effects of Geodon with the patient. Give Geodon with food. 3. Increase Cogentin 1 mg PO BID for EPS. Disposition: The patient will be referred to inpatient psychiatric services once medically clear. Will staff with Dr. Love Mcghee.
[2018-08-20] MEDS ORDERED: GEODON PO SCH (17:47)
[2018-08-20] MEDS: APRESOLINE IV PRN (18:20)
[2018-08-20] MEDS ORDERED: COGENTIN PO SCH (18:21)
[2018-08-21] MEDS: NACL 0.9% 1000 ML 1,000 ML IV SCH ×3 (02:01→18:50)
[2018-08-21] MEDS: APRESOLINE PO SCH ×3 (06:04→21:44)
[2018-08-21] MEDS: ROCEPHIN/NS 1 GM/50 ML 1 GM/50 ML BAG IV SCH (10:11)
[2018-08-21] MEDS: LOVENOX SUB-Q SCH (10:11)
[2018-08-21] MEDS: COGENTIN PO SCH ×2 (10:11→21:43)
[2018-08-21] MEDS: PEPCID IV SCH (10:11)
[2018-08-21] MEDS: SODIUM CHLORIDE FLUSH SYRINGE 10 ML IV SCH ×2 (10:12→21:45)
[2018-08-21] MEDS: GEODON PO SCH ×2 (10:12→21:43)
--- NOTE | 2018-08-21 10:29 | Progress Note ---
Subjective - Reason for Consult Consult date: 08/21/18 Reason for consult: Psychiatry Follow-up - Chief Complaint Chief complaint: "It's all good" Patient is a 37 y.o. male who presented to the ER for AMS. This patient is known to me. Today the patient is preoccupied during the assessment. He had to be redirected several times to keep him on topic. He smiles inappropriately and laugh out loud throughout the interview. He would not con firm or deny AH's. No involuntary movements noted. He denies SI/HI's and VH's. No indications of side effects of his medications. Mental Status Exam - Vital signs Last Vital Signs Temp 97.3 F L 08/21/18 05:00 Pulse 88 08/21/18 05:00 Resp 17 08/21/18 05:00 BP 128/84 08/21/18 05:00 Pulse Ox 98 08/21/18 05:00 - Exam Narrative exam: MSE: Appearance: cooperative Behavior: regular eye contact Speech: regular rate and tone Mood: elated, preoccupied Affect: congruent to mood Thought Process: circumstantial Thought Content: denies SI/HI's and VH's Motor Activity: sitting up in bed Cognition: A/O x3 Insight: variable Judgment: variable Assessment and Plan Impression: Unspecified Psychosis. Cannabis Use DO. Hx of Depression. Today the patient is preoccupied during the assessment. The patient is experiencing perceptual disturbances. No involuntary movement noted. DDx: Bipolar DO with psychosis, Substance Induced Psychosis Recommendation/Plan: Continue 1013, Geodon 20 mg PO BID for psychosis, and Cogentim 1 mg PO BID for EPS. Discussed possible metabolic side effects of Geodon with the patient. Give Geodon with food. Dispo: The patient will be referred to inpatient psy services. Staffed with Dr Warner.
[2018-08-21] MEDS: APRESOLINE IV PRN (12:06)
[2018-08-22] MEDS: NACL 0.9% 1000 ML 1,000 ML IV SCH ×3 (04:20→22:03)
[2018-08-22] MEDS: APRESOLINE PO SCH ×3 (05:46→21:57)
[2018-08-22] MEDS: TYLENOL PO PRN (08:05)
[2018-08-22] MEDS: GEODON PO SCH (09:59)
[2018-08-22] MEDS: PEPCID PO SCH (09:59)
[2018-08-22] MEDS: COGENTIN PO SCH ×2 (09:59→22:08)
[2018-08-22] MEDS: LOVENOX SUB-Q SCH (09:59)
[2018-08-22] MEDS: ROCEPHIN/NS 1 GM/50 ML 1 GM/50 ML BAG IV SCH (09:59)
[2018-08-22] MEDS: SODIUM CHLORIDE FLUSH SYRINGE 10 ML IV SCH ×2 (10:00→22:04)
--- NOTE | 2018-08-22 13:36 | Progress Note ---
Assessment and Plan Assessment and plan: Patient is a 37-year-old man with history of schizophrenia, MDD and Alcohol intoxication was brought in by police department EMS with altered level of consciousness and aggressive behavior. Patient was noted to be in acute psychosis with suicidal ideation and placed on 1013 status. -Acute psychosis; patient has history of schizophrenia, Patient is on 1013 status, psychiatric evaluation, supportive care -Suicidal thoughts or ideation; 1013 status/psych -Hypoglycemia; present on admission, Blood sugars are reasonable levels, closely monitor -Acute kidney injury; secondary to ATN; resolved -Hypercalcemia; patient has history of recurrent hypercalcemia, Vigorous IV hydration, monitor calcium levels -Sepsis UTI, poa treat with Antibiotics and follow cultures -History of substance abuse; alcohol, tobacco and recreational use, Advised to quit -History of hypertension; moderate control continue current antihypertensives, and when necessary medications -Abnormal thyroid function tests; repeat thyroid panel and manage accordingly -EPS, poa: psych is following -DVT prophylaxis; Lovenox Closely monitor the patient and adjust the management as needed Continue 1013 status, follow psych evaluation Possible transfer to inpatient psych facility once medically stable Plan of care reviewed with the patient and his nurse Medical cleared to go to inpatient psych facility History Interval history: Patient was seen and examined. Follow-up on current diagnosis of SI, denies today. Overnight uneventful. Patient denies any chest pain, shortness breath, nausea/vomiting or severe headaches. Imaging, nursing note, chart, labs and old chart reviewed. Discussed with patient. Hospitalist Physical - Physical exam Narrative exam: Gen: WDWN, NAD, Awake, Alert, Orientated HEENT: NCAT, EOMI, PERRL, OP Clear Neck: supple, no adenopathy, no thyromegaly, no JVD CVS/Heart: RRR, normal S1S2, pulses present bilaterally Chest/Lungs: CTA B, Symmetrical chest expansion, good air entry bilaterally GI/Abdomen: soft, NTND, good bowel sounds, no guarding or rebound /Bladder: no suprapubic tenderness, no CVA or paraspinal tenderness Extermity/Skin: no c/c/e, no obvious rash MSK: FROM x 4 Neuro: CN 2-12 grossly intact, no new focal deficits Psych: calm - Constitutional Vitals: Temp Pulse Resp BP Pulse Ox 97.5 F L 66 20 155/93 97 08/22/18 11:38 08/22/18 11:38 08/22/18 11:38 08/22/18 11:38 08/22/18 11:38 General appearance: Present: no acute distress, well-nourished Results - Labs CBC & Chem 7: 08/19/18 05:19 08/20/18 04:38 Labs: Laboratory Last Values WBC 6.0 K/mm3 (4.5-11.0) 08/19/18 05:19 RBC 5.22 M/mm3 (3.65-5.03) H 08/19/18 05:19 Hgb 14.8 gm/dl (11.8-15.2) 08/19/18 05:19 Hct 45.0 % (35.5-45.6) 08/19/18 05:19 MCV 86 fl (84-94) 08/19/18 05:19 MCH 28 pg (28-32) 08/19/18 05:19 MCHC 33 % (32-34) 08/19/18 05:19 RDW 14.5 % (13.2-15.2) 08/19/18 05:19 Plt Count 329 K/mm3 (140-440) 08/19/18 05:19 Lymph % (Auto) 42.1 % (13.4-35.0) H 08/19/18 05:19 [place] % (Auto) 10.0 % (0.0-7.3) H 08/19/18 05:19 Eos % (Auto) 4.9 % (0.0-4.3) H 08/19/18 05:19 Baso % (Auto) 1.1 % (0.0-1.8) 08/19/18 05:19 Lymph # 2.5 K/mm3 (1.2-5.4) 08/19/18 05:19 [place] # 0.6 K/mm3 (0.0-0.8) 08/19/18 05:19 Eos # 0.3 K/mm3 (0.0-0.4) 08/19/18 05:19 Baso # 0.1 K/mm3 (0.0-0.1) 08/19/18 05:19 Seg Neutrophils % 41.9 % (40.0-70.0) 08/19/18 05:19 Seg Neutrophils # 2.5 K/mm3 (1.8-7.7) 08/19/18 05:19 PT 13.9 Sec. (12.2-14.9) 08/16/18 20:58 INR 1.01 (0.87-1.13) 08/16/18 20:58 APTT 26.4 Sec. (24.2-36.6) 08/16/18 20:58 Sodium 137 mmol/L (137-145) 08/20/18 04:38 Potassium 4.2 mmol/L (3.6-5.0) 08/20/18 04:38 Chloride 106.2 mmol/L (98-107) 08/20/18 04:38 Carbon Dioxide 23 mmol/L (22-30) 08/20/18 04:38 Anion Gap 12 mmol/L 08/20/18 04:38 BUN 8 mg/dL (9-20) L 08/20/18 04:38 Creatinine 0.8 mg/dL (0.8-1.5) 08/20/18 04:38 Estimated GFR > 60 ml/min 08/20/18 04:38 BUN/Creatinine Ratio 10 % 08/20/18 04:38 Glucose 94 mg/dL (75-100) 08/20/18 04:38 POC Glucose 81 (70-105) 08/19/18 11:04 Hemoglobin A1c 4.7 % (4-6) 08/17/18 01:06 Lactic Acid 1.40 mmol/L (0.7-2.0) 08/16/18 21:49 Calcium 12.0 mg/dL (8.4-10.2) H 08/20/18 04:38 Magnesium 2.30 mg/dL (1.7-2.3) 08/16/18 20:58 Total Bilirubin 0.50 mg/dL (0.1-1.2) 08/16/18 20:58 Direct Bilirubin < 0.2 mg/dL (0-0.2) 08/16/18 20:58 Indirect Bilirubin 0.3 mg/dL 08/16/18 20:58 AST 17 units/L (5-40) 08/16/18 20:58 ALT 7 units/L (7-56) 08/16/18 20:58 Alkaline Phosphatase 71 units/L (35-129) 08/16/18 20:58 Total Creatine Kinase 507 units/L (55-170) H 08/16/18 20:58 Total Protein 6.9 g/dL (6.3-8.2) 08/16/18 20:58 Albumin 4.5 g/dL (3.9-5) 08/16/18 20:58 Albumin/Globulin Ratio 1.9 % 08/16/18 20:58 Triglycerides 35 mg/dL (2-149) 08/17/18 01:06 Cholesterol 129 mg/dL (50-199) 08/17/18 01:06 LDL Cholesterol Direct 86 mg/dL (50-130) 08/17/18 01:06 HDL Cholesterol 44 mg/dL (40-59) 08/17/18 01:06 Cholesterol/HDL Ratio 2.93 % 08/17/18 01:06 TSH 0.691 mlU/mL (0.270-4.200) 08/19/18 05:19 Free T4 1.50 ng/dL (0.76-1.46) H 08/19/18 05:19 Urine Color Yellow (Yellow) 08/16/18 23:01 Urine Turbidity Slightly-cloudy (Clear) 08/16/18 23:01 Urine pH 5.0 (5.0-7.0) 08/16/18 23: Ur Specific [place] 1.014 (1.003-1.030) 08/16/18 23:01 Urine Protein 100 mg/dl mg/dL (Negative) 08/16/18 23:01 Urine Glucose (UA) 50 mg/dL (Negative) 08/16/18 23:01 Urine Ketones Tr mg/dL (Negative) 08/16/18 23:01 Urine Blood Neg (Negative) 08/16/18 23:01 Urine Nitrite Neg (Negative) 08/16/18 23:01 Urine Bilirubin Neg (Negative) 08/16/18 23:01 Urine Urobilinogen < 2.0 mg/dL (<2.0) 08/16/18 23:01 Ur Leukocyte Esterase Neg (Negative) 08/16/18 23:01 Urine WBC (Auto) 2.0 /HPF (0.0-6.0) 08/16/18 23:01 Urine RBC (Auto) 1.0 /HPF (0.0-6.0) 08/16/18 23:01 Urine Bacteria (Auto) 1+ /HPF (Negative) 08/16/18 23:01 Urine Mucus Few /HPF 08/16/18 23:01 Salicylates < 0.3 mg/dL (2.8-20.0) L 08/16/18 20:54 Urine Opiates Screen Presumptive negative 08/16/18 23:01 Urine Methadone Screen Presumptive negative 08/16/18 23:01 Acetaminophen < 5.0 ug/mL (10.0-30.0) L 08/16/18 20:54 Ur Barbiturates Screen Presumptive negative 08/16/18 23:01 Ur Phencyclidine Scrn Presumptive negative 08/16/18 23:01 Ur Amphetamines Screen Presumptive negative 08/16/18 23:01 U Benzodiazepines Scrn Presumptive positive 08/16/18 23:01 Urine Cocaine Screen Presumptive negative 08/16/18 23:01 U Marijuana (THC) Screen Presumptive positive 08/16/18 23:01 Drugs of Abuse Note Disclamer 08/16/18 23:01 Plasma/Serum Alcohol < 0.01 % (0-0.07) 08/16/18 20:54
--- NOTE | 2018-08-22 13:57 | Progress Note ---
Subjective - Reason for Consult Consult date: 08/22/18 Reason for consult: Psychiatry Follow-up - Chief Complaint Chief complaint: "It's all good" Patient is a 37 y.o. male who presented to the ER for AMS. This patient is known to me. Today the patient is calm during the assessment. He stated that the TV is talking to him even when its's off. He continues to present with an elated mood throughout the interview. He denies SI/HI's and V H's. No indications of side effects of his medications. Mental Status Exam - Vital signs Last Vital Signs Temp 97.5 F L 08/22/18 11:38 Pulse 66 08/22/18 11:38 Resp 20 08/22/18 11:38 BP 155/93 08/22/18 11:38 Pulse Ox 97 08/22/18 11:38 - Exam Narrative exam: MSE: Appearance: calm, cooperative Behavior: regular eye contact Speech: regular rate and tone Mood: elated Affect: congruent to mood Thought Process: circumstantial Thought Content: denies SI/HI's and VH', ideas of reference Motor Activity: sitting up in bed Cognition: A/O x3 Insight: variable Judgment: variable Assessment and Plan Impression: Unspecified Psychosis. Cannabis Use DO. Hx of Depression. Today the patient is calm during the assessment. The patient is experiencing ideas of reference. No involuntary movement noted. DDx: Bipolar DO with psychosis, Substance Induced Psychosis Recommendation/Plan: Continue 1013. D/C Geodon and start Zyprexa 5 mg PO HS for psychosis. Modify Cogentin to 1 mg PO HS for EPS prevention. Discussed possible metabolic side effects of Zyprexa with the patient. Dispo: The patient will be referred to inpatient psy services. Staffed with Dr Warner.
[2018-08-23] MEDS: APRESOLINE PO SCH ×3 (06:04→22:11)
--- NOTE | 2018-08-23 07:27 | Progress Note ---
Assessment and Plan Assessment and plan: Patient is a 37-year-old man with history of schizophrenia, MDD and Alcohol intoxication was brought in by police department EMS with altered level of consciousness and aggressive behavior. Patient was noted to be in acute psychosis with suicidal ideation and placed on 1013 status. -Acute psychosis; patient has history of schizophrenia, Patient is on 1013 status, psychiatric following and managing meds -Suicidal thoughts or ideation; 1013 status/psych -Hypoglycemia; present on admission, Blood sugars are reasonable levels, closely monitor -Acute kidney injury; secondary to ATN, poa; resolved -Hypercalcemia; patient has history of recurrent hypercalcemia -Sepsis UTI, poa, resolved, finished Antibiotic -History of substance abuse; alcohol, tobacco and recreational use, counseling done -History of hypertension; moderate control, continue current antihypertensives and when necessary medications -Abnormal thyroid function tests; repeated thyroid panel and stable -EPS, poa: psych is following -DVT prophylaxis; Lovenox Disposition: continue inpatient care, await placement, Medical cleared to go to inpatient psych facility History Interval history: Patient was seen and examined. Follow-up on current diagnosis of SI, denies today. Overnight uneventful. Patient denies any chest pain, shortness breath, nausea/vomiting or severe headaches. Imaging, nursing note, chart, labs and old chart reviewed. Discussed with patient. Hospitalist Physical - Physical exam Narrative exam: Gen: WDWN, NAD, Awake, Alert, Orientated HEENT: NCAT, EOMI, PERRL, OP Clear Neck: supple, no adenopathy, no thyromegaly, no JVD CVS/Heart: RRR, normal S1S2, pulses present bilaterally Chest/Lungs: CTA B, Symmetrical chest expansion, good air entry bilaterally GI/Abdomen: soft, NTND, good bowel sounds, no guarding or rebound /Bladder: no suprapubic tenderness, no CVA or paraspinal tenderness Extermity/Skin: no c/c/e, no obvious rash MSK: FROM x 4 Neuro: CN 2-12 grossly intact, no new focal deficits Psych: calm - Constitutional Vitals: Temp Pulse Resp BP Pulse Ox 97.8 F 60 17 132/90 99 08/23/18 06:03 08/23/18 06:04 08/23/18 06:03 08/23/18 06:04 08/23/18 06:03 General appearance: Present: no acute distress, well-nourished Results - Labs CBC & Chem 7: 08/19/18 05:19 08/20/18 04:38 Labs: Laboratory Last Values WBC 6.0 K/mm3 (4.5-11.0) 08/19/18 05:19 RBC 5.22 M/mm3 (3.65-5.03) H 08/19/18 05:19 Hgb 14.8 gm/dl (11.8-15.2) 08/19/18 05:19 Hct 45.0 % (35.5-45.6) 08/19/18 05:19 MCV 86 fl (84-94) 08/19/18 05:19 MCH 28 pg (28-32) 08/19/18 05:19 MCHC 33 % (32-34) 08/19/18 05:19 RDW 14.5 % (13.2-15.2) 08/19/18 05:19 Plt Count 329 K/mm3 (140-440) 08/19/18 05:19 Lymph % (Auto) 42.1 % (13.4-35.0) H 08/19/18 05:19 [place] % (Auto) 10.0 % (0.0-7.3) H 08/19/18 05:19 Eos % (Auto) 4.9 % (0.0-4.3) H 08/19/18 05:19 Baso % (Auto) 1.1 % (0.0-1.8) 08/19/18 05:19 Lymph # 2.5 K/mm3 (1.2-5.4) 08/19/18 05:19 [place] # 0.6 K/mm3 (0.0-0.8) 08/19/18 05:19 Eos # 0.3 K/mm3 (0.0-0.4) 08/19/18 05:19 Baso # 0.1 K/mm3 (0.0-0.1) 08/19/18 05:19 Seg Neutrophils % 41.9 % (40.0-70.0) 08/19/18 05:19 Seg Neutrophils # 2.5 K/mm3 (1.8-7.7) 08/19/18 05:19 PT 13.9 Sec. (12.2-14.9) 08/16/18 20:58 INR 1.01 (0.87-1.13) 08/16/18 20:58 APTT 26.4 Sec. (24.2-36.6) 08/16/18 20:58 Sodium 137 mmol/L (137-145) 08/20/18 04:38 Potassium 4.2 mmol/L (3.6-5.0) 08/20/18 04:38 Chloride 106.2 mmol/L (98-107) 08/20/18 04:38 Carbon Dioxide 23 mmol/L (22-30) 08/20/18 04:38 Anion Gap 12 mmol/L 08/20/18 04:38 BUN 8 mg/dL (9-20) L 08/20/18 04:38 Creatinine 0.8 mg/dL (0.8-1.5) 08/20/18 04:38 Estimated GFR > 60 ml/min 08/20/18 04:38 BUN/Creatinine Ratio 10 % 08/20/18 04:38 Glucose 94 mg/dL (75-100) 08/20/18 04:38 POC Glucose 81 (70-105) 08/19/18 11:04 Hemoglobin A1c 4.7 % (4-6) 08/17/18 01:06 Lactic Acid 1.40 mmol/L (0.7-2.0) 08/16/18 21:49 Calcium 12.0 mg/dL (8.4-10.2) H 08/20/18 04:38 Magnesium 2.30 mg/dL (1.7-2.3) 08/16/18 20:58 Total Bilirubin 0.50 mg/dL (0.1-1.2) 08/16/18 20:58 Direct Bilirubin < 0.2 mg/dL (0-0.2) 08/16/18 20:58 Indirect Bilirubin 0.3 mg/dL 08/16/18 20:58 AST 17 units/L (5-40) 08/16/18 20:58 ALT 7 units/L (7-56) 08/16/18 20:58 Alkaline Phosphatase 71 units/L (35-129) 08/16/18 20:58 Total Creatine Kinase 507 units/L (55-170) H 08/16/18 20:58 Total Protein 6.9 g/dL (6.3-8.2) 08/16/18 20:58 Albumin 4.5 g/dL (3.9-5) 08/16/18 20:58 Albumin/Globulin Ratio 1.9 % 08/16/18 20:58 Triglycerides 35 mg/dL (2-149) 08/17/18 01:06 Cholesterol 129 mg/dL (50-199) 08/17/18 01:06 LDL Cholesterol Direct 86 mg/dL (50-130) 08/17/18 01:06 HDL Cholesterol 44 mg/dL (40-59) 08/17/18 01:06 Cholesterol/HDL Ratio 2.93 % 08/17/18 01:06 TSH 0.691 mlU/mL (0.270-4.200) 08/19/18 05: Free T4 1.50 ng/dL (0.76-1.46) H 08/19/18 05:19 Urine Color Yellow (Yellow) 08/16/18 23:01 Urine Turbidity Slightly-cloudy (Clear) 08/16/18 23: Urine pH 5.0 (5.0-7.0) 08/16/18 23: Ur Specific [place] 1.014 (1.003-1.030) 08/16/18 23:01 Urine Protein 100 mg/dl mg/dL (Negative) 08/16/18 23:01 Urine Glucose (UA) 50 mg/dL (Negative) 08/16/18 23:01 Urine Ketones Tr mg/dL (Negative) 08/16/18 23:01 Urine Blood Neg (Negative) 08/16/18 23: Urine Nitrite Neg (Negative) 08/16/18 23: Urine Bilirubin Neg (Negative) 08/16/18 23:01 Urine Urobilinogen < 2.0 mg/dL (<2.0) 08/16/18 23:01 Ur Leukocyte Esterase Neg (Negative) 08/16/18 23:01 Urine WBC (Auto) 2.0 /HPF (0.0-6.0) 08/16/18 23:01 Urine RBC (Auto) 1.0 /HPF (0.0-6.0) 08/16/18 23:01 Urine Bacteria (Auto) 1+ /HPF (Negative) 08/16/18 23: Urine Mucus Few /HPF 08/16/18 23:01 Salicylates < 0.3 mg/dL (2.8-20.0) L 08/16/18 20:54 Urine Opiates Screen Presumptive negative 08/16/18 23:01 Urine Methadone Screen Presumptive negative 08/16/18 23:01 Acetaminophen < 5.0 ug/mL (10.0-30.0) L 08/16/18 20:54 Ur Barbiturates Screen Presumptive negative 08/16/18 23:01 Ur Phencyclidine Scrn Presumptive negative 08/16/18 23:01 Ur Amphetamines Screen Presumptive negative 08/16/18 23:01 U Benzodiazepines Scrn Presumptive positive 08/16/18 23:01 Urine Cocaine Screen Presumptive negative 08/16/18 23:01 U Marijuana (THC) Screen Presumptive positive 08/16/18 23:01 Drugs of Abuse Note Disclamer 08/16/18 23:01 Plasma/Serum Alcohol < 0.01 % (0-0.07) 08/16/18 20:54 Nutrition/Malnutrition Assess - Dietary Evaluation Nutrition/Malnutrition Findings: Nutrition Notes Start: 08/22/18 15:29 Freq: Status: Active Protocol: Document 08/22/18 15:29 RM (Rec: 08/22/18 15:30 RM [id number]) Nutrition Notes Need for Assessment generated from: LOS Initial or Follow up Brief Note Height 5 ft 7 in Weight 74 kg [place] Body Weight (kg) 67.27 BMI 25.5 Percent of energy/protein needs met: Screened for LOS. PO intake 100% X 3 days. Nutrition Intervention Revisit per MD consult or patient Sign Off request:
--- NOTE | 2018-08-23 12:11 | Progress Note ---
Subjective - Reason for Consult Consult date: 08/23/18 Reason for consult: Psychiatric Follow-up Evaluation - Chief Complaint Chief complaint: "I'm okay" Patient is a 37 y.o. male who presented to the ER for AMS. This patient is known to me. Today the patient is calm and cooperative during the assessment. He endorses auditory hallucinations but is unable to remember/recall what the voices are saying. In addition, patient reports paranoid delusions. He states, " I feel like I'm about to ." He denies SI/HI's and VH's. Patient is medication compliant. No indications of side effects of his medications. Mental Status Exam - Vital signs Last Vital Signs Temp 97.8 F 08/23/18 06:03 Pulse 60 08/23/18 06:04 Resp 17 08/23/18 06:03 BP 132/90 08/23/18 06:04 Pulse Ox 99 08/23/18 06:03 - Exam Narrative exam: Mental Status Exam Appearance: calm, cooperative Behavior: regular eye contact Speech: regular rate and tone Mood: " I'm okay" Affect: congruent to mood Thought Process: circumstantial Thought Content: denies SI/HI's and VH's; + auditory hallucinations and paranoid delusions Motor Activity: laying in bed Cognition: A/O x 3 Insight: variable Judgment: variable Assessment and Plan Impression: Unspecified Psychosis. Cannabis Use DO. Hx of Depression. Today the patient is calm during the assessment. The patient is endorses auditory hallucinations and paranoid delusions. No involuntary movement noted. DDx: Bipolar DO with psychosis, Substance Induced Psychosis Recommendation/Plan: 1. Continue 1013. 2. Continue Zyprexa 5 mg PO HS for psychosis. Cogentin to 1 mg PO HS for EPS prevention. Discussed possible metabolic side effects of Zyprexa with the patient. Disposition: The patient will be referred to inpatient psychiatric services. Will staff with Dr. Warner.
[2018-08-23] MEDS: PEPCID PO SCH (12:32)
[2018-08-23] MEDS: LOVENOX SUB-Q SCH (12:33)
[2018-08-23] MEDS: SODIUM CHLORIDE FLUSH SYRINGE 10 ML IV SCH ×3 (19:39→22:14)
[2018-08-23] MEDS: COGENTIN PO SCH (22:11)
[2018-08-24] MEDS: APRESOLINE PO SCH ×3 (06:07→21:54)
--- NOTE | 2018-08-24 07:06 | Progress Note ---
Assessment and Plan Assessment and plan: Patient is a 37-year-old man with history of schizophrenia, MDD and Alcohol intoxication was brought in by police department EMS with altered level of consciousness and aggressive behavior. Patient was noted to be in acute psychosis with suicidal ideation and placed on 1013 status. -Acute psychosis; patient has history of schizophrenia, Patient is on 1013 status, psychiatric following and managing meds -Suicidal thoughts or ideation; 1013 status/psych -Hypoglycemia; present on admission, Blood sugars are reasonable levels, closely monitor -Acute kidney injury; secondary to ATN, poa; resolved -Hypercalcemia; patient has history of recurrent hypercalcemia -Sepsis UTI, poa, resolved, finished Antibiotic -History of substance abuse; alcohol, tobacco and recreational use, counseling done -History of hypertension; moderate control, continue current antihypertensives and when necessary medications -Abnormal thyroid function tests; repeated thyroid panel and stable -EPS, poa: psych is following -DVT prophylaxis; Lovenox Disposition: continue inpatient care, await placement, Medical cleared to go to inpatient psych facility History Interval history: Patient was seen and examined. Follow-up on current diagnosis of SI, denies today. Overnight uneventful. Patient denies any chest pain, shortness breath, nausea/vomiting or severe headaches. Imaging, nursing note, chart, labs and old chart reviewed. Discussed with patient. Hospitalist Physical - Physical exam Narrative exam: Gen: WDWN, NAD, Awake, Alert, Orientated HEENT: NCAT, EOMI, PERRL, OP Clear Neck: supple, no adenopathy, no thyromegaly, no JVD CVS/Heart: RRR, normal S1S2, pulses present bilaterally Chest/Lungs: CTA B, Symmetrical chest expansion, good air entry bilaterally GI/Abdomen: soft, NTND, good bowel sounds, no guarding or rebound /Bladder: no suprapubic tenderness, no CVA or paraspinal tenderness Extermity/Skin: no c/c/e, no obvious rash MSK: FROM x 4 Neuro: CN 2-12 grossly intact, no new focal deficits Psych: calm - Constitutional Vitals: Temp Pulse Resp BP Pulse Ox 97.6 F 59 L 16 131/80 100 08/24/18 06:06 08/24/18 06:07 08/24/18 06:06 08/24/18 06:07 08/24/18 06:06 General appearance: Present: no acute distress, well-nourished Results - Labs CBC & Chem 7: 08/19/18 05:19 08/20/18 04:38 Labs: Laboratory Last Values WBC 6.0 K/mm3 (4.5-11.0) 08/19/18 05:19 RBC 5.22 M/mm3 (3.65-5.03) H 08/19/18 05:19 Hgb 14.8 gm/dl (11.8-15.2) 08/19/18 05:19 Hct 45.0 % (35.5-45.6) 08/19/18 05:19 MCV 86 fl (84-94) 08/19/18 05:19 MCH 28 pg (28-32) 08/19/18 05:19 MCHC 33 % (32-34) 08/19/18 05:19 RDW 14.5 % (13.2-15.2) 08/19/18 05:19 Plt Count 329 K/mm3 (140-440) 08/19/18 05:19 Lymph % (Auto) 42.1 % (13.4-35.0) H 08/19/18 05:19 [place] % (Auto) 10.0 % (0.0-7.3) H 08/19/18 05:19 Eos % (Auto) 4.9 % (0.0-4.3) H 08/19/18 05:19 Baso % (Auto) 1.1 % (0.0-1.8) 08/19/18 05:19 Lymph # 2.5 K/mm3 (1.2-5.4) 08/19/18 05:19 [place] # 0.6 K/mm3 (0.0-0.8) 08/19/18 05:19 Eos # 0.3 K/mm3 (0.0-0.4) 08/19/18 05:19 Baso # 0.1 K/mm3 (0.0-0.1) 08/19/18 05:19 Seg Neutrophils % 41.9 % (40.0-70.0) 08/19/18 05:19 Seg Neutrophils # 2.5 K/mm3 (1.8-7.7) 08/19/18 05:19 PT 13.9 Sec. (12.2-14.9) 08/16/18 20:58 INR 1.01 (0.87-1.13) 08/16/18 20:58 APTT 26.4 Sec. (24.2-36.6) 08/16/18 20:58 Sodium 137 mmol/L (137-145) 08/20/18 04:38 Potassium 4.2 mmol/L (3.6-5.0) 08/20/18 04:38 Chloride 106.2 mmol/L (98-107) 08/20/18 04:38 Carbon Dioxide 23 mmol/L (22-30) 08/20/18 04:38 Anion Gap 12 mmol/L 08/20/18 04:38 BUN 8 mg/dL (9-20) L 08/20/18 04:38 Creatinine 0.8 mg/dL (0.8-1.5) 08/20/18 04:38 Estimated GFR > 60 ml/min 08/20/18 04:38 BUN/Creatinine Ratio 10 % 08/20/18 04:38 Glucose 94 mg/dL (75-100) 08/20/18 04:38 POC Glucose 81 (70-105) 08/19/18 11:04 Hemoglobin A1c 4.7 % (4-6) 08/17/18 01:06 Lactic Acid 1.40 mmol/L (0.7-2.0) 08/16/18 21:49 Calcium 12.0 mg/dL (8.4-10.2) H 08/20/18 04:38 Magnesium 2.30 mg/dL (1.7-2.3) 08/16/18 20:58 Total Bilirubin 0.50 mg/dL (0.1-1.2) 08/16/18 20:58 Direct Bilirubin < 0.2 mg/dL (0-0.2) 08/16/18 20:58 Indirect Bilirubin 0.3 mg/dL 08/16/18 20:58 AST 17 units/L (5-40) 08/16/18 20:58 ALT 7 units/L (7-56) 08/16/18 20:58 Alkaline Phosphatase 71 units/L (35-129) 08/16/18 20:58 Total Creatine Kinase 507 units/L (55-170) H 08/16/18 20:58 Total Protein 6.9 g/dL (6.3-8.2) 08/16/18 20:58 Albumin 4.5 g/dL (3.9-5) 08/16/18 20:58 Albumin/Globulin Ratio 1.9 % 08/16/18 20:58 Triglycerides 35 mg/dL (2-149) 08/17/18 01:06 Cholesterol 129 mg/dL (50-199) 08/17/18 01:06 LDL Cholesterol Direct 86 mg/dL (50-130) 08/17/18 01:06 HDL Cholesterol 44 mg/dL (40-59) 08/17/18 01:06 Cholesterol/HDL Ratio 2.93 % 08/17/18 01:06 TSH 0.691 mlU/mL (0.270-4.200) 08/19/18 05: Free T4 1.50 ng/dL (0.76-1.46) H 08/19/18 05:19 Urine Color Yellow (Yellow) 08/16/18 23:01 Urine Turbidity Slightly-cloudy (Clear) 08/16/18 23: Urine pH 5.0 (5.0-7.0) 08/16/18 23: Ur Specific [place] 1.014 (1.003-1.030) 08/16/18 23:01 Urine Protein 100 mg/dl mg/dL (Negative) 08/16/18 23: Urine Glucose (UA) 50 mg/dL (Negative) 08/16/18 23:01 Urine Ketones Tr mg/dL (Negative) 08/16/18 23:01 Urine Blood Neg (Negative) 08/16/18 23: Urine Nitrite Neg (Negative) 08/16/18 23: Urine Bilirubin Neg (Negative) 08/16/18 23:01 Urine Urobilinogen < 2.0 mg/dL (<2.0) 08/16/18 23:01 Ur Leukocyte Esterase Neg (Negative) 08/16/18 23:01 Urine WBC (Auto) 2.0 /HPF (0.0-6.0) 08/16/18 23:01 Urine RBC (Auto) 1.0 /HPF (0.0-6.0) 08/16/18 23:01 Urine Bacteria (Auto) 1+ /HPF (Negative) 08/16/18 23: Urine Mucus Few /HPF 08/16/18 23:01 Salicylates < 0.3 mg/dL (2.8-20.0) L 08/16/18 20:54 Urine Opiates Screen Presumptive negative 08/16/18 23:01 Urine Methadone Screen Presumptive negative 08/16/18 23:01 Acetaminophen < 5.0 ug/mL (10.0-30.0) L 08/16/18 20:54 Ur Barbiturates Screen Presumptive negative 08/16/18 23:01 Ur Phencyclidine Scrn Presumptive negative 08/16/18 23:01 Ur Amphetamines Screen Presumptive negative 08/16/18 23:01 U Benzodiazepines Scrn Presumptive positive 08/16/18 23:01 Urine Cocaine Screen Presumptive negative 08/16/18 23:01 U Marijuana (THC) Screen Presumptive positive 08/16/18 23:01 Drugs of Abuse Note Disclamer 08/16/18 23:01 Plasma/Serum Alcohol < 0.01 % (0-0.07) 08/16/18 20:54 Nutrition/Malnutrition Assess - Dietary Evaluation Nutrition/Malnutrition Findings: Nutrition Notes Start: 08/22/18 15:29 Freq: Status: Active Protocol: Document 08/22/18 15:29 RM (Rec: 08/22/18 15:30 RM [id number]) Nutrition Notes Need for Assessment generated from: LOS Initial or Follow up Brief Note Height 5 ft 7 in Weight 74 kg [place] Body Weight (kg) 67.27 BMI 25.5 Percent of energy/protein needs met: Screened for LOS. PO intake 100% X 3 days. Nutrition Intervention Revisit per MD consult or patient Sign Off request:
[2018-08-24] MEDS: LOVENOX SUB-Q SCH (10:49)
[2018-08-24] MEDS: PEPCID PO SCH (10:49)
[2018-08-24] MEDS: SODIUM CHLORIDE FLUSH SYRINGE 10 ML IV SCH ×2 (10:55→21:55)
--- NOTE | 2018-08-24 11:38 | Progress Note ---
Subjective - Reason for Consult Consult date: 08/24/18 Reason for consult: Psychiatric Follow-up Evaluation - Chief Complaint Chief complaint: "I feel good." Patient is a 37 y.o. male who presented to the ER for AMS. This patient is known to me. Today the patient is calm and cooperative during the assessment. He endorses auditory/visual hallucinations . He reports the voices are saying everything is going to be alright, as well as, seeing everybody on the television talk to him. In addition, patient continues to endorse paranoid delusions. He denies SI/HI's. Patient is medication compliant. Denies any side effects of medication. Mental Status Exam - Vital signs Last Vital Signs Temp 97.6 F 08/24/18 06:06 Pulse 59 L 08/24/18 06:07 Resp 16 08/24/18 06:06 BP 131/80 08/24/18 06:07 Pulse Ox 100 08/24/18 06:06 - Exam Narrative exam: Mental Status Exam Appearance: calm, cooperative Behavior: regular eye contact Speech: regular rate and tone Mood: " I feel good" Affect: congruent to mood Thought Process: circumstantial Thought Content: denies SI/HI's; + auditory/visual hallucinations and paranoid delusions Motor Activity: laying in bed Cognition: A/O x 3 Insight: variable Judgment: variable Assessment and Plan Impression: Unspecified Psychosis. Cannabis Use DO. Hx of Depression. Today the patient is calm and cooperative during the assessment. The patient endorses auditory/visual hallucinations and paranoid delusions. No involuntary movement noted. DDx: Bipolar DO with psychosis, Substance Induced Psychosis Recommendation/Plan: 1. Continue 1013. 2. Increase Zyprexa 10 mg PO HS for psychosis. Cogentin to 1 mg PO HS for EPS prevention. Discussed possible metabolic side effects of Zyprexa with the patient. Disposition: The patient will be referred to inpatient psychiatric services. Staffed with Dr. Warner.
[2018-08-24] MEDS: COGENTIN PO SCH (21:54)
[2018-08-25 06:12] VITALS: BP 128/89
[2018-08-25] MEDS: APRESOLINE PO SCH (06:25)
[2018-08-25] MEDS: PEPCID PO SCH (10:02)
[2018-08-25] MEDS: LOVENOX SUB-Q SCH (10:02)
[2018-08-25] MEDS: SODIUM CHLORIDE FLUSH SYRINGE 10 ML IV SCH (10:02)
--- NOTE | 2018-08-25 11:16 | Progress Note ---
Subjective - Reason for Consult Consult date: 08/25/18 Reason for consult: Psychiatry Follow-up - Chief Complaint Chief complaint: "John there" Patient is a 37 y.o. male who presented to the ER for AMS. This patient is known to me. Today the patient is calm and cooperative during the assessment. Also, he is more more organized and lucid. He stated that he will follow up with [facility] for outpatient psy services. He denies SI/HI's and AVH's. He denies any side effects of his medications. Mental Status Exam - Vital signs Last Vital Signs Temp 97.5 F L 08/25/18 06:10 Pulse 73 08/25/18 06:25 Resp 20 08/25/18 06:10 BP 128/89 08/25/18 06:25 Pulse Ox 100 08/25/18 06:10 - Exam Narrative exam: MSE: Appearance: in hospital attire Behavior: regular eye contact Speech: regular rate and tone Mood:: "okay" Affect: congruent to mood Thought Process: more organized Thought Content: denies SI/HI's and AVH's Motor Activity: ambulatory Cognition: A/O x3 Insight: fair Judgment: fair Assessment and Plan Impression: Unspecified Psychosis. Cannabis Use DO. Hx of Depression. Today the patient is calm and cooperative during the assessment. The patient psychosis have resolved. DDx: Bipolar DO with psychosis, Substance Induced Psychosis Recommendation/Plan: The patient's 1013 08/22/2018 and will not be extended. The patient do not meet criteria for a 1013. Continue Zyprexa 10 mg PO HS and Cogentin to 1 mg PO HS for EPS prevention. Discussed possible metabolic side effects of Zyprexa with the patient. Dispo: The patient can follow up with [facility] for outpatient psy service sToñito Juan staff with Dr Love Horner.
--- NOTE | 2018-08-25 12:34 | Discharge Summary ---
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 Patient was noted to be in acute psychosis with suicidal ideation and placed on 1013 status. Patient stabilized on antipsychotics and psych rescinded 1013 -Acute psychosis; patient has history of schizophrenia, Patient is on 1013 status, psychiatric following and managing meds -Suicidal thoughts or ideation; 1013 status/psych -Hypoglycemia; present on admission, resolved -Acute kidney injury; secondary to ATN, poa; resolved -Hypercalcemia; patient has history of recurrent hypercalcemia -Sepsis UTI, poa, resolved, finished Antibiotic -History of substance abuse; alcohol, tobacco and recreational use, counseling done -History of hypertension; moderate control, continue current antihypertensives and when necessary medications -Abnormal thyroid function tests; repeated thyroid panel and stable -EPS, poa: psych is following -DVT prophylaxis; Lovenox Disposition: home per psych recommendation Psych Impression: Unspecified Psychosis. Cannabis Use DO. Hx of Depression. Today the patient is calm and cooperative during the assessment. The patient psychosis have resolved. DDx: Bipolar DO with psychosis, Substance Induced Psychosis Recommendation/Plan: The patient's 1013 08/22/2018 and will not be extended. The patient do not meet criteria for a 1013. Continue Zyprexa 10 mg PO HS and Cogentin to 1 mg PO HS for EPS prevention. Discussed possible metabolic side effects of Zyprexa with the patient. Dispo: The patient can follow up with [facility] for outpatient psy services. Will staff with Dr Love Horner. Disposition: - TO HOME OR SELFCARE Time spent for discharge: 32 minutes Core Measure Documentation - Palliative Care Palliative Care/ Comfort Measures: Not Applicable - Core Measures Any of the following diagnoses?: none - VTE Discharge Requirements Deep Vein Thrombosis/Pulmonary Embolism Present on Admission: No Has pt received <5 days of overlap therapy or INR<2.0: No Anticoagulant overlap therapy prescribed at discharge: No Contraindication No Overlap Therapy order at DC: Not Indicated Exam - Physical Exam Narrative exam: Gen: WDWN, NAD, Awake, Alert, Orientated HEENT: NCAT, EOMI, PERRL, OP Clear, teeth clenching/head boobing improved Neck: supple, no adenopathy, no thyromegaly, no JVD CVS/Heart: RRR, normal S1S2, pulses present bilaterally Chest/Lungs: CTA B, Symmetrical chest expansion, good air entry bilaterally GI/Abdomen: soft, NTND, good bowel sounds, no guarding or rebound /Bladder: no suprapubic tenderness, no CVA or paraspinal tenderness Extermity/Skin: no c/c/e, no obvious rash MSK: FROM x 4 Neuro: CN 2-12 grossly intact, no new focal deficits Psych: calm - Constitutional Vitals: Temp Pulse Resp BP Pulse Ox 97.5 F L 73 20 128/89 100 08/25/18 06:10 08/25/18 06:25 08/25/18 06:10 08/25/18 06:25 08/25/18 06:10 Plan Activity: other (no strenous activity) Diet: regular Additional Instructions: [facility] Follow up with: PRIMARY MD ZORA [Primary Care Provider] - 3-5 Days [facility] [Other] - 7 Days Prescriptions: Acetaminophen [Acetaminophen TAB] 650 mg PO Q4H PRN #15 tablet PRN Reason: Pain MILD(1-3)/Fever >100.5/OSBORN Benztropine [Cogentin] 1 mg PO HS #30 tablet OLANzapine [ZyPREXA] 10 mg PO HS #30 tablet
== END 2018-08-25 15:47 | disposition home or self-care (01) | DRG 871 ==
LOC: ED 19:30 → 3A 23:54
PROVIDERS: ADMIT Internal Medicine; ATTEND Internal Medicine
DX: A41.9 Sepsis, unspecified organism (principal); N17.0 Acute kidney failure with tubular necrosis; N39.0 Urinary tract infection, site not specified; E16.2 Hypoglycemia, unspecified; I10 Essential (primary) hypertension; F32.9 Major depressive disorder, single episode, unspecified; F12.90 Cannabis use, unspecified, uncomplicated; D72.829 Elevated white blood cell count, unspecified; F41.9 Anxiety disorder, unspecified; F20.9 Schizophrenia, unspecified; J45.909 Unspecified asthma, uncomplicated; E83.52 Hypercalcemia; R94.6 Abnormal results of thyroid function studies
CPT/HCPCS: 36415; 70450; 71045; 72125; 80048; 80061; 80076; 80307; 80320; 81001; 82140; 82550; 82962; 83036; 83735; 84439; 84443; 85025; 85610; 85730; 87086; 93005; 93010; 96374; G0378; G0480; J0360; J0696; J1631; J1650; J7030